=== PATIENT | male | born 1990 | race Caucasian/White ===

== ENCOUNTER 2025-01-14 14:24 | Emergency (ER) | payer MEDICAID, SELFPAY ==
--- OUTSIDE RECORDS SUMMARY | 2024-12-28 13:15 | XMS_ITS | Encounter Summary ---
Author Organization [place] [address] Care Team Providers Care Poultry Hanger Name Role Phone Darleen Trujillo MD Primary Care Provider [phone] Reason for Visit * Reason Comments Annual Exam Encounter Details Date Type Department Care Team (Late st Contact Info) Description 12/28/2024 1:15 PM EDT Office Visit [facility] [address] [place] [address] Darleen Trujillo MD [address] [place] [address] Annual physical exam (Primary Dx); Jojo disease (HCC); Memory disturbance Social History Tobacco Use Types Packs/Day Years Used Date Smoking Tobacco: Every Day Cigarettes 2 17.4 Started: 2007 Smokeless Tobacco: Never Tobacco Cessation:Ready [...] hopeless 0 12/28/2024 1:12 PM EDT Leda Mendze RMA PHQ-2 Total Score 0 12/28/2024 1:12 [...] A referral to a specialist who treats [place]'s disease will be pursued, preferably one [place] his location due to transportation challenges. If no response is received within a month, further action will be taken to ensure he gets the necessary care. Copies of his medical records will be made for further review. 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 Allysno Jalloh is a 34 y.o. male Chief [...] tension-type headache, not intractable Family history of [place]'s disease [place] disease (HCC) History reviewed. No pertinent past [...] of Present Illness The patient presents for [place]'s disease. He has been diagnosed with [place]'s disease, a condition that also claimed his [...] Results Diagnostic Testing - Genetic Test for [place] Disease: Heterozygous for 45 CAG The provider educated the patient (or legal maintenance representative) on the use of the ambient listening artificial intelligence tool, [employer]. 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
--- OUTSIDE RECORDS SUMMARY | 2025-01-04 14:00 | XMS_ITS | Encounter Summary ---
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) Galileo Ortega MD [address] [facility] [address] [place] [phone] Phone: tel: fax: Referral ID Status Reason Start Date Expiration Date Visits Requested Visits Authorized [id number] Authorized Specialty Services Required 01/04/2025 07/06/2026 1 1 Scheduling Instructions Please establish with patient for conformed Dayana's Disease with anticipated mood disorder included OCD, Anxiety, Depression, as well as anticipated impulsive behavior that are likely to develop over the disease course Reason for Visit * Consultation (Routine) - Closed Specialty Diagnoses / Procedures Referred By Loco clark Referred To Contact Neurology 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..] included. Subjective Junaid Jalloh presents to the [facility] Neurology Clinic as a new patient today with/for No chief complaint on file.. HPI Patient previously seen in [facility] for Haakon's Disease assessment in 2018, when he was [...] Reflexes: 2+ throughout Coordination: no ataxia with tqbevr-ri-fkhi and ctsl-qz-gtjm testing Proprioception: intact in upper and lower extremities bilaterally Cortical: no extinction of visual or tactile sensation with double simultaneous stimulation Gait/Station: alternates between narrow and wide based gait, chorea present with walking that is subtle, Discussion Summary: Junaid Jalloh is a 34 y.o. Male with significant PMHx of depression and know Father who was diagnosis'd with Haakon's disease between [id number] at age 47-48. He in 2022. His [...] his medical history. 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 #Haakon's Disease - he was educated and counseled about Dayana's disease, including its genetic basis, inheritance pattern, and progressive nature. Additional resources were provided, including the Haakon's Disease society of [place] (HD SA) website and support groups. - Genetic counseling was already discussed with hand filer balance wheel and they recommended testing 5 children after [...] was told about clinical trials available at [place] and [place] at this time. - Encouraged regular exercise [...] Castro MD Neurology Resident pgy 2 Pager: [phone] Smart Chat preferred I saw and evaluated [...] History Problem Relation Name Age of Onset Haakon's disease Father [3] Past Surgical History: Procedure [...] Clinic [facility] Clinic [address] [place] [address] Liset Castro MD [address] [phone] Scheduled Referrals Name Type Priority Associated Diagnoses Order Schedule Ambulatory referral to Psychiatry Outpatient Referral Routine Haakon disease (CMS/HCC) Expected: 01/04/2025 (Approximate), Expires: 07/08/2026 documented as of this encounter Visit Diagnoses Diagnosis 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
--- NOTE | 2025-01-14 14:28 | HMH.EDGENADL ---
Discharge Plan Disposition Patient Disposition: Home, Self-Care Condition: Good Referrals Follow up/Referrals: Provider,Referral, MD [Primary Care Provider, Medical] - See instructions Activity Restrictions/Add. Instructions Additional Instructions/Restrictions: You may wash with soap and water. Keep clean and dry. If you notice any redness drainage pain or swelling return to the ER. Your renate need to come out in 5 days. He may return to [facility] or the ER for staple removal. Clinical Impressions Clinical Impression: Laceration Instructions Patient Instructions: DI for Laceration Repair Print Language Print Language: Slovenian Discharge ED Provider: Robby Lamar Adult HPI <CORINNE Gutierrez - Last Filed: 01/14/25 16:16> General Chief complaint: Head Injury Stated complaint: AO 01/14 1400 Hit in head with crowbar Time Seen by Provider: 01/14/25 14:28 History of Present Illness HPI narrative: Patient presents for a scalp laceration. Patient was working utilizing a ladder and forgot that he had a crowbar on top of it. When he moved the ladder the crowbar fell striking him blade first in his posterior scalp. He did not lose consciousness. He denies any neck pain head pain changes or loss of vision. Related Data Allergies Allergy/AdvReac Type Severity Reaction Status Date / Time No Known Allergies Allergy Verified 01/14/25 15:04 PFS <CORINNE Gutierrez - Last Filed: 01/14/25 16:16> FOR[facility]LY [facility], [facility] Disclaimer: The information contained in this section may have been updated after the patient was seen, as this information can be updated by other users. Social History (Updated 01/14/25 @ 16:16 by CORINNE Gutierrez) Smoking Status: Current every day smoker alcohol intake: never current occupational status: employed Travel in the last 8 weeks?: None Have you lived/traveled outside US in past 30 days?: No Contact w/someone who lives/traveled outside US past 30 days?: No Exposure to someone with infectious disease in past 14 days?: No Do you have a fever (greater than 100.4 F or 38 C)?: No Have you tested positive for COVID-19?: No Exposed to someone with COVID-19 in past 14 days?: No Do you have a sore throat?: No Do you have a cough?: No Do you have any weakness?: No Do you have any diarrhea?: No Are you experiencing any unusual bleeding?: No Do you have any muscle aches/pain?: No Do you have any abdominal pain?: No Are you experiencing loss of taste or smell?: No <CORINNE Gutierrez - Last Filed: 01/14/25 16:16> ROS Obtained: Yes Systems reviewed as appropriate & no additional complaints except as documented Physical Exam <CORINNE Gutierrez - Last Filed: 01/14/25 16:16> General General appearance: alert and in no apparent distress Respiratory Respiratory exam: Present normal lung sounds bilaterally Cardiovascular Cardiovascular exam: Present regular rate Neurological Exam Neurological exam: Present alert and oriented X3 Medical Decision Making <CORINNE Gutierrez - Last Filed: 01/14/25 16:16> Medical Records Screening: Per USPSTF and CDC recommendations, given the prevalence of disease in our region, it is our hospital?s policy to screen for HIV and viral Hepatitis for all patients aged 18 and over and those with ongoing risk factors. Chance Inquiry Pt receiving controlled substance: No Vital Signs: 01/14/25 14:32 01/14/25 16:12 Temperature 98.2 F 98.4 F Temperature Source Oral Oral Pulse Rate 89 Pulse Rate [Left] 113 H Respiratory Rate 16 16 Blood Pressure 132/86 Blood Pressure [Right Arm] 138/96 H Blood Pressure Mean [Right Arm] 110 Blood Pressure Source Automatic Cuff Blood Pressure Source [Right Arm] Automatic Cuff Blood Pressure Position Sitting Blood Pressure Position [Right Arm] Sitting 02 Sat by Pulse Oximetry 98 Oxygen Delivery Method Room Air Room Air Orders (Tests/Meds): ED MEDICATIONS Discontinued Medications Generic Name Dose Route Start Last Admin Trade Name Freq PRN Reason Stop Dose Admin Cocaine HCl 1 ml 01/14/25 15:01 01/14/25 15:12 Cocaine 4% Topical Soln 4ml Bottle TP 01/14/25 15:02 1 ml ONCE ONE Administration Epinephrine HCl 1 mg 01/14/25 15:01 01/14/25 15:12 Epinephrine 1 Mg/Ml Ampul TP 01/14/25 15:02 1 mg ONCE ONE Administration Lidocaine HCl 1 ml 01/14/25 15:01 01/14/25 15:11 Lidocaine 2% Urojet 10ml TP 01/14/25 15:02 1 ml ONCE ONE Administration Lidocaine/Epinephrine 10 ml 01/14/25 14:59 Lidocaine 1% W/Epi 1:100,000 20ml Vial SQ 01/14/25 15:00 ONCE ONE Tetanus/Reduced Diphtheria/Acell Pertussis 0.5 ml 01/14/25 14:59 01/14/25 15:13 Tet/Diphth/Pert-Adult 0.5ml Syringe IM 01/14/25 15:00 0.5 ml .ONCE ONE Administration Medical Decision Narrative: In summary patient is a 34-year-old male who presents to the emergency department for evaluation of Laceration. Patient is hemodynamically upon arrival, afebrile. Physical exam is remarkable for a approximately 3 cm laceration at the crown of his head in the midline but posteriorly. No palpable bony deformities. Patient is awake alert and oriented person place circumstance. Katelin Coma Scale 15. Differential diagnosis includes simple laceration versus skull fracture versus closed head injury etc. However patient has no red flags to suggest anything other than a simple laceration thus alternative diagnosis is were not pursued. Initial workup was considered with labs and imaging however again patient has no red flags to suggest more significant injury so BANEGAS deferred. Initial interventions include Tdap and LAC solution. After 30 minutes for topical anesthetic take effect wound was explored and it is superficial does not extend to the calvarium. Wound was closed with 7 renate with good hemostasis and approximation. Patient given wound care and strict return precautions. <Robby Lamar MD - Last Filed: 01/14/25 23:02> Vital Signs: 01/14/25 14:32 01/14/25 16:12 Temperature 98.2 F 98.4 F Temperature Source Oral Oral Pulse Rate 89 Pulse Rate [Left] 113 H Respiratory Rate 16 16 Blood Pressure 132/86 Blood Pressure [Right Arm] 138/96 H Blood Pressure Mean [Right Arm] 110 Blood Pressure Source Automatic Cuff Blood Pressure Source [Right Arm] Automatic Cuff Blood Pressure Position Sitting Blood Pressure Position [Right Arm] Sitting 02 Sat by Pulse Oximetry 98 Oxygen Delivery Method Room Air Room Air Orders (Tests/Meds): ED MEDICATIONS Discontinued Medications Generic Name Dose Route Start Last Admin Trade Name Freq PRN Reason Stop Dose Admin Cocaine HCl 1 ml 01/14/25 15:01 01/14/25 15:12 Cocaine 4% Topical Soln 4ml Bottle TP 01/14/25 15:02 1 ml ONCE ONE Administration Epinephrine HCl 1 mg 01/14/25 15:01 01/14/25 15:12 Epinephrine 1 Mg/Ml Ampul TP 01/14/25 15:02 1 mg ONCE ONE Administration Lidocaine HCl 1 ml 01/14/25 15:01 01/14/25 15:11 Lidocaine 2% Urojet 10ml TP 01/14/25 15:02 1 ml ONCE ONE Administration Lidocaine/Epinephrine 10 ml 01/14/25 14:59 Lidocaine 1% W/Epi 1:100,000 20ml Vial SQ 01/14/25 15:00 ONCE ONE Tetanus/Reduced Diphtheria/Acell Pertussis 0.5 ml 01/14/25 14:59 01/14/25 15:13 Tet/Diphth/Pert-Adult 0.5ml Syringe IM 01/14/25 15:00 0.5 ml .ONCE ONE Administration Medical Decision Narrative: In summary patient is a 34-year-old male who presents to the emergency department for evaluation of Laceration. Patient is hemodynamically upon arrival, afebrile. Physical exam is remarkable for a approximately 3 cm laceration at the crown of his head in the midline but posteriorly. No palpable bony deformities. Patient is awake alert and oriented person place circumstance. Katelin Coma Scale 15. Differential diagnosis includes simple laceration versus skull fracture versus closed head injury etc. However patient has no red flags to suggest anything other than a simple laceration thus alternative diagnosis is were not pursued. Initial workup was considered with labs and imaging however again patient has no red flags to suggest more significant injury so BANEGAS deferred. Initial interventions include Tdap and LAC solution. After 30 minutes for topical anesthetic take effect wound was explored and it is superficial does not extend to the calvarium. Wound was closed with 7 renate with good hemostasis and approximation. Patient given wound care and strict return precautions. I was consulted by the CHARLENE, and we discussed the complexity of the problems being addressed.I approved the treatment and management plan for this patient?s care in the Emergency Department, thus performing a substantive portion of the medical decision making.Signed, Robby Lamar MD [facility] Procedures <CORINNE Gutierrez - Last Filed: 01/14/25 16:16> Laceration Laceration 1: Site: scalp Size (cm): 3.5 Description: linear Depth: simple, single layer Local Anesthetic: other anesthetic (LAC solution) Pre-repair: wound explored, irrigated extensively and deep structures intact Skin layer closed with: other (renate) Number of sutures: 7 Critical Care <CORINNE Gutierrez - Last Filed: 01/14/25 16:16> Critical Care Time Critical Care Time: No
[2025-01-14 14:32] VITALS: BP 138/96; PULSE 113; RESP 16; TEMP 36.8; O2SAT 98; BMI 23.8
--- OUTSIDE RECORDS SUMMARY | 2025-01-14 14:50 | XMS_ITS | Clinical Summary ---
Author Organization Healthcare Address [address] [place] [address] Care Team Providers Care Seamer Elastic Band Name Role Phone Pcp, No Primary Care Provider Unavailabl e Allergies No known active allergies Medications No known medications Active Problems Problem Noted Date Diagnosed Date Family history of Boundary's disease Missing teeth, acquired 10/24/2023 Chronic tension-type headache, not intractable 0 10/24/2023 Chronic back pain 10/24/2023 Wears glasses 10/24/2023 Astigmatism 10/24/2023 Encounters Date Type Department Care Team Description 01/04/2025 2:00 PM EDT Consult [facility] [address], [address] [place] [address] Liset Castro MD 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) 01/04/2025 Travel 12/31/2024 Telephone [facility] [address], [address] [place] [address] Neurology, Physician, 12/23/2024 Telephone [facility] [address], [address] [place] [address] Rocky Mckenna MD 12/20/2024 Telephone [facility] [address], [address] [place] [address] None, None 12/01/2024 Orders Only [facility] [address], [address] [place] [phone] Whitney Pereyra, HOUSEKEEPER HEAD Jojo disease ([facility]) (Primary Dx) 12/01/2024 Telephone [facility] [address], [address] [place] [address] Jasmine Quick, RITA 11/25/2024 Telephone [facility] [address], [facility] [place] [address] Whitney Pereyra, HOUSEKEEPER HEAD HCN Clinical Concern/Question 11/16/2024 Telephone [facility] [address], [facility] [place] [address] Whitney Pereyra, HOUSEKEEPER HEAD HCN - Patient Message 10/26/2024 10:00 AM EDT Office Visit [facility] [address], [address] [place] [phone] Jasmine Quick, GC 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4 C (99.3 F) 10/23/2023 12:55 PM EDT Respiratory Rate 18 10/23/2023 12:5 5 PM EDT Oxygen Saturation 99% 01/04/2025 1:23 PM EDT Inhaled Oxygen Concentration - - Weight 59.4 kg (130 lb 15.3 oz) 01/04/2025 1:23 PM EDT Height 162.9 cm (5' 4.13 ) 10/23/2023 1 2:55 PM EDT Body Mass Index 22.38 10/23/2023 12:55 PM EDT Plan of Treatment Upcoming Encounters Date Type Department Care Team (Late st Contact Info) Description 07/05/2025 2:00 PM EST Office Visit [place] [facility] [address], [address] [place] [address] Liset Castro MD [address] [place] [address] Health Maintenance Due Date Last Done Comments [facility]-HIV Screening 1990 [facility]-Hepatitis C Screening 1990 [facility]-Infant/Child/Adol SDOH Screenings 1990 [facility]-DTaP,Tdap,and Td Vaccines (2 - Tdap) 01/29/2003 01/28/2003 [facility]-Varicella Vaccines (1 of 2 - 13+ 2-dose series) 2003 HPV Vaccines (1 - Male 3-dose series) 2005 [facility]- SDOH Screenings 2008 [facility]-Adult SDOH Screenings 2008 [facility]-Pneumococcal Vaccine: Pediatrics (0 to 5 Years) and At-Risk Patients (6 to 49 Years) (1 of 2 - PCV) 2009 [facility]-IKNAV-09 Vaccine (1 - season) 2024 [facility]-Depression Screening 10/22/2024 10/23/2023 [facility]-Influenza Vaccine (Season Ended) 2025 [facility]-Zoster Vaccines (1 of 2) 2040 [facility]-Hepatitis B Vaccines Completed 004, 02/28/2003, 01/28/2003 [facility]-Hepatitis A Vaccines Aged Out 07/17/2021 No longer eligible based on patient's age to complete this topic [facility]-HIB Vaccines Aged Out No longer e ligible based on patient's age to complete this topic [facility]-IPV Vaccines Aged Out No longer e ligible based on patient's age to complete this topic [facility]-Rotavirus Vaccines Aged Out No lo nger eligible based on patient's age to complete this topic Insurance [employer] Care Teams Seamer Elastic Band Relationship Specialty Start Date End [place] [address] PCP - General Family Medicine 10/26/24
--- OUTSIDE RECORDS SUMMARY | 2025-01-14 14:50 | XMS_ITS | Encounter Summary ---
Author Organization Healthcare Address [address] [place] [address] Care Team Providers Care Manufacturing Plant Controller Name Role Phone Pcp, No Primary Care Provider Unavailabl e Encounter Details Date Type Department Care Team (Late st Contact Info) Description 12/20/2024 Telephone [facility] [address], [address] [place] [address] None, None [address], [place] [id number] Social History Tobacco Use Types Packs/Day Years [...] on file documented as of this encounter Miscellaneous Notes * Telephone Encounter - Viki Lovell RN - 01/10/2025 3:48 PM EDT Referral was faxed and patient was seen by [facility] Neurology on 01/21/2025 at 1400. * Telephone Encounter - Nito Orourke - 12/20/2024 9:24 AM EDT Clinical Concern/Question Reason for Call: pt's mother calling because prior referral was sent to clinic that does not acceptpt's insurance, please send new referral to Dr Rocky Mckenna, fax #[phone] Best contact number: [phone] (home) Optimal time of day to reach caller: ANYTIME Additional comments/information from caller: None Note: Please do not reply to this message. Follow-up communication and further actions as a result of this message need to be communicated with the patient directly, if the patient is not active onMyChart. If the patient is active on MyChart, they will receive notification of the communication/outcome via DataContact. documented in this encounter Plan of Treatment Upcoming Encounters Date Type Department Care Team (Late st Contact Info) Description 07/05/2025 2:00 PM EST Office Visit [facility] [address], [address] [place] [address] Liset Castro MD [address] [place] [address] documented as of this encounter Visit Diagnoses Not on filedocumented in this encounter Additional Health Concerns Assessment Noted Time A Body Mass Index follow-up plan has been documented for the patient 11/02/2024 1:55 PM EDT documented as of this encounter Care Teams Manufacturing Plant Controller Relationship Specialty Start Date End Date Pcp, Dhara [address] [place] [address] PCP - General Family Medicine 10/26/24 documented as of this encounter
--- OUTSIDE RECORDS SUMMARY | 2025-01-14 14:50 | XMS_ITS | Encounter Summary ---
Author Organization Healthcare Address [address] [place] [address] Care Team Providers Care Caterer'S Aide Name Role Phone Pcp, No Primary Care Provider Unavailabl e Reason for Visit * Reason Onset Date Comments HCN Clinical Concern/Question 11/25/2024 Encounter Details Date Type Department Care Team (Late st Contact Info) Description 11/25/2024 Telephone [facility] [address], [address] [place] [address] Whitney Pereyra APRN [address] [place] [address] HCN Clinical Concern/Question Social History Tobacco Use Types Packs/Day Years [...] encounter Miscellaneous Notes * Telephone Encounter - Whitney Pereyra APRN - 12/01/2024 12:41 PM EDT Referral order placed. Please fax clinical documents and referral per patient/clinic's request. Thank you. * Telephone Encounter - Viki Lovell RN - 12/01/2024 10:36 AM EDT Forwarding * Telephone Encounter - Maribell Menendez - 11/25/2024 10:34 AM EDT Clinical Concern/Question Reason for Call: Mom of patient who is helping him states that Dr. Leda Villeda's office is requesting a referral to their Neurology clinic in addition to the labs that were previously sent so they can schedule the patient. If you could please fax that to [phone]. If you could please let Mom know when that has been done. Thank you. Best contact number: Other: [phone] Optimal time of day to reach caller: ANYTIME Additional comments/information from caller: None Note: Please do not reply to this message. Follow-up communication and further actions as a result of this message need to be communicated with the patient directly, if the patient is not active onMyChart. If the patient is active on MyChart, they will receive notification of the communication/outcome via [email or web address]. documented in this encounter Plan of Treatment Upcoming Encounters Date Type Department Care Team (Late st Contact Info) Description 07/05/2025 2:00 PM EST Office Visit [place] [facility] [address], [address] [place] [address] Liset Castro MD [address] [place] [address] documented as of this encounter Visit Diagnoses Not on filedocumented in this encounter Additional Health Concerns Assessment Noted Time A Body Mass Index follow-up plan has been documented for the patient 11/02/2024 1:55 PM EDT documented as of this encounter Care Teams Caterer'S Aide Relationship Specialty Start Date End Date Pcp, [place] [address] PCP - General Family Medicine 10/26/24 documented as of this encounter
--- OUTSIDE RECORDS SUMMARY | 2025-01-14 14:50 | XMS_ITS | Encounter Summary ---
Author Organization Healthcare Address [address] [place] [address] Care Team Providers Care Aesthetics Instructor Name Role Phone Pcp, No Primary Care Provider Unavailabl e Encounter Details Date Type Department Care Team (Late st Contact Info) Description 12/31/2024 Telephone [facility] [address] [place] [address] Neurology, Physician, [address] [place] [address] Social History Tobacco Use Types Packs/Day Years [...] on file documented as of this encounter Plan of Treatment Upcoming Encounters Date Type Department Care Team (Late st Contact Info) Description 07/05/2025 2:00 PM EST Office Visit [facility] [address] [place] [address] Liset Castro MD [address] [place] [address] documented as of this encounter Visit Diagnoses Not on filedocumented in this encounter Additional Health Concerns Assessment Noted Time A Body Mass Index follow-up plan has been documented for the patient 11/02/2024 1:55 PM EDT documented as of this encounter Care Teams Aesthetics Instructor Relationship Specialty Start Date End Date Pcp, [place] [address] PCP - General Family Medicine 10/26/24 documented as of this encounter
--- OUTSIDE RECORDS SUMMARY | 2025-01-14 14:50 | XMS_ITS | Encounter Summary ---
Author Organization Healthcare Address [address] [place] [address] Care Team Providers Care Conveyor Tender Concrete Mixing Plant Name Role Phone Pcp, No Primary Care Provider Unavailabl e Encounter Details Date Type Department Care Team (Late st Contact Info) Description 12/01/2024 Telephone [facility] [address], [address] [place] [address] Jasmine Quick, [address] [place] [address] Social History Tobacco Use Types Packs/Day Years [...] Telephone Encounter - Viki Lovell RN - 12/10/2024 3:58 PM EDT I faxed referral on 12/08/2024 at 0938 and spoke with retail center receptionist Alexx lindsay who confirmed neurology referral was received and their sales development coordinator will reach out to schedule soon. * Telephone Encounter - Viki Lovell RN - 12/10/2024 3:57 PM EDT I faxed referral on 12/08/2024 at 0938 and spoke with retail center receptionist Alexx lindsay who confirmed neurology referral was received and their sales development coordinator will reach out to schedule soon. * Telephone Encounter - Jasmine Quick GC - 12/01/2024 10:32 AM EDT Family was following up on referral to Neurologist: Leda Villeda at [facility], fax [phone] Junaid Jalloh [address] [place] [address] - mail results to family * Telephone Encounter - Nito Orourke - 12/01/2024 10:25 AM EDT Clinical Concern/Question Reason for Call: pt's calling because pt's records need to be sent to Neuro for treatment plan, please callback to discuss tino Best contact number: [phone] (home) Optimal time of day to reach caller: ANYTIME Additional comments/information from caller: None Note: Please do not reply to this message. Follow-up communication and further actions as a result of this message need to be communicated with the patient directly, if the patient is not active onMyChart. If the patient is active on MyChart, they will receive notification of the communication/outcome via MyChart. documented in this encounter Plan of Treatment Upcoming Encounters Date Type Department Care Team (Late st Contact Info) Description 07/05/2025 2:00 PM EST Office Visit [facility] [address] [place] [address] Liset Castro MD [address] [place] [address] documented as of this encounter Visit Diagnoses Not on filedocumented in this encounter Additional Health Concerns Assessment Noted Time A Body Mass Index follow-up plan has been documented for the patient 11/02/2024 1:55 PM EDT documented as of this encounter Care Teams Conveyor Tender Concrete Mixing Plant Relationship Specialty Start Date End Date Pcp, No [address] [place] [address] PCP - General Family Medicine 10/26/24 documented as of this encounter
--- OUTSIDE RECORDS SUMMARY | 2025-01-14 14:50 | XMS_ITS | Clinical Summary ---
Author Organization 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 Astigmatism 10/24/2023 Chronic back pain 10/24/2023 Chronic tension-type headache, not intractable 0 10/24/2023 Family history of Carbon's disease Encounters Date Type Department Care Team Description 12/28/2024 1:15 PM EDT Office Visit [facility] [address] [place] [address] Darleen Trujillo MD Annual physical exam (Primary Dx); Carbon disease (HCC); Memory disturbance from Last 3 Months Immunizations Immunization Administration Dates Next Due Hepatitis A, Adult 07/17/2021 Hepatitis B, Ped/Adol 09/09/2003,02/28/2003,01/03 MMR 03/19/1996 Td (Adult), Absorbed 01/28/2003 Family History Medical History Relation Name Comments huntingtons disease Father huntingtons disease Relation Name Status Comments Father huntingtons disease Social History Tobacco Use Types Packs/Day Years [...] on file Sexual Orientation Not on file Obstetrics History Last Filed Vital Signs Vital Sign Reading [...] Mass Index 22.85 12/28/2024 1:12 PM EDT Plan of Treatment Health Maintenance Due Date Last Done Comments DTaP/TDaP/Td (2 - Tdap) 01/29/2003 01/28/2003 Pneumococcal Vaccine 0-49 (1 of 2 - PCV) 2009 COVID-19 Vaccine (2023-2 5 season) 2024 Influenza Vaccine (Season Ended) 2025 Annual Wellness Exam 12/28/2025 12/28/2024 Hepatitis B Vaccine Completed 09/09/2003, 02/28/2003, 01/28/2003 Meningococcal B Vaccine Aged Out No l onger eligible based on patient's age to complete this topic Goals Goal Patient Goal Type Associated Problems Recent Progress Patient-Stated? Author Maintain a healthy diet, exercise regularly and maintain an ideal body weight General Zara Angela CCMA Stay Tobacco Free Lifestyle Zara Angela CCMA Procedures Procedure Name Priority Date/Time Associated Diagnosis Comments GENETIC SCANNING 12/29/2024 6:25 PM EDT from Last 3 Months Results * GENETIC SCANNING (12/29/2024 6:25 PM EDT) 12/29/2024 6:25 PM EDT us Unknown Provider HEMATOLOGY ORDERABLES Final Res ult from Last [address] [place] [address] [id number] MDR Care Teams Seasoning Sprayer Relationship Specialty Start Date End Date Darleen Trujillo MD [address] [place] [address] PCP - General Family Medicine 04/16/23
--- OUTSIDE RECORDS SUMMARY | 2025-01-14 14:50 | XMS_ITS | Encounter Summary ---
Author Organization Healthcare Address [address] [place] [address] Care Team Providers Care Tool Designer Apprentice Name Role Phone Leda Villeda Patrick DO Primary Care Provider Pcp, No Primary Care Provider Unavailabl e Encounter Details Date Type Department Care Team (Late st Contact Info) Description 10/18/2024 Results Follow-Up [facility] Pediatric Specialty [address], [address] [place] [address] Whitney Pereyra P, FLYING SHEAR OPERATOR [address] [place] [address] Social History Tobacco Use Types [...] Description 07/05/2025 2:00 PM EST Office Visit [facility] [address], [address] [place] [address] Liset Castro MD [address] [place] [address] documented as of this encounter Visit Diagnoses Not on filedocumented in this encounter Additional Health Concerns Assessment Noted Time A Body Mass Index follow-up plan has been documented for the patient 10/24/2023 6:00 PM EDT documented as of this encounter Care Teams Tool Designer Apprentice Relationship Specialty Start Date End Date Leda Villeda DO [facility] [address] [place] [address] PCP - General 10/23/23 10/25/24 Pcp, [place] [address] PCP - General Family Medicine 10/26/24 documented as of this encounter
--- OUTSIDE RECORDS SUMMARY | 2025-01-14 14:50 | XMS_ITS | Encounter Summary ---
Author Organization Healthcare Address [address] [place] [address] Care Team Providers Care Meter Maintenance Person Name Role Phone Pcp, No Primary Care Provider Unavailabl e Reason for Visit * Reason Onset Date Comments HCN - Patient Message 11/16/2024 Encounter Details Date Type Department Care Team (Late st Contact Info) Description 11/16/2024 Telephone [facility] [address], [address] [place] [address] Whitney Pereyra, PHYSICS FACULTY MEMBER [address] [place] [address] HCN - Patient Message Social History Tobacco Use Types Packs/Day Years [...] encounter Miscellaneous Notes * Telephone Encounter - Zahira Laurent RN - 11/17/2024 9:29 AM EDT Faxed HD Testing Results to Dr. Leda Villeda at the fax number given on 11/17/24, confirmed fax went through. * Telephone Encounter - Santiago Perez - 11/16/2024 3:08 PM EDT Clinical Concern/Question Reason for Call: please send lab results to Leda Villeda fax number [phone] Best contact number: [phone] Optimal time of day to reach caller: ANYTIME Additional comments/information from caller: Not Applicable Note: Please do not reply to this message. Follow-up communication and further actions as a result of this message need to be communicated with the patient directly, if the patient is not active onMyChart. If the patient is active on MyChart, they will receive notification of the communication/outcome via [employer]. documented in this encounter Plan of Treatment Upcoming Encounters Date Type Department Care Team (Late st Contact Info) Description 07/05/2025 2:00 PM EST Office Visit [place] [facility] [address], [address]st [place] [address] Liset Castro MD [address] [place] [address] documented as of this encounter Visit Diagnoses Not on filedocumented in this encounter Additional Health Concerns Assessment Noted Time A Body Mass Index follow-up plan has been documented for the patient 11/02/2024 1:55 PM EDT documented as of this encounter Care Teams Meter Maintenance Person Relationship Specialty Start Date End Date Pcp, Dhara [address] [place] [address] PCP - General Family Medicine 10/26/24 documented as of this encounter
--- OUTSIDE RECORDS SUMMARY | 2025-01-14 14:50 | XMS_ITS | Encounter Summary ---
Author Organization Healthcare Address [address] [place] [address] Care Team Providers Care Gym Manager Name Role Phone Pcp, No Primary Care Provider Unavailabl e Encounter Details Date Type Department Care Team (Late st Contact Info) Description 12/23/2024 Telephone [facility] [address], [address] [place] [address] Rocky Mckenna MD [address] [place] [address] Social History Tobacco Use Types [...] encounter Miscellaneous Notes * Telephone Encounter - Troi Evans - 12/23/2024 12:41 PM EDT Patient Phone Message Reason for Call: Patient is requesting a call back to his mother for scheduling with Dr. Mckenna. Confirmed this is correct. No open slots available. Please work in, Best contact number and optimal time of day to reach caller: [phone] best number Note: Please do not reply to this [...] Description 07/05/2025 2:00 PM EST Office Visit [facility] [address], [address]st [place] [address] Liset Castro MD [address] [place], [place] [id number] documented as of this encounter Visit Diagnoses Not on filedocumented in this encounter Additional Health Concerns Assessment Noted Time A Body Mass Index follow-up plan has been documented for the patient 11/02/2024 1:55 PM EDT documented as of this encounter Care Teams Gym Manager Relationship Specialty Start Date End Date Pcp, No [address] [place] [address] PCP - General Family Medicine 10/26/24 documented as of this encounter
--- OUTSIDE RECORDS SUMMARY | 2025-01-14 14:50 | XMS_ITS | Encounter Summary ---
Author Organization Healthcare Address [address] [place] [address] Care Team Providers Care Manufacturing Engineer Assembly Name Role Phone Pcp, No Primary Care Provider Unavailabl e Reason for Referral * Consultation (Routine) - Closed Specialty Diagnoses / Procedures Referred By Contjake t Referred To Contact Neurology Diagnoses Jojo disease (CMS/HCC) Whitney Pereyra APRN [address] [place] [address] Phone: tel: fax: Referral ID Status Reason Start Date Expiration Date V isits Requested Visits Authorized [id number] Closed Specialty Services Required 12/01/2024 06/02/2026 1 1 Scheduling Instructions Please send referral to Leda Villeda at [facility] per family/patient request. Encounter Details Date Type Department Care Team (Late st Contact Info) Description 12/01/2024 Orders Only [facility] Pediatric Specialty [address], [address] [place] [address] Whitney Pereyra APRN [address] [place] [address] Red [place] disease (CMS/HCC) (Primary Dx) Social History Tobacco [...] as of this encounter Miscellaneous Notes * Progress Notes - Whitney Pereyra APRN - 12/01/2024 12:38 PM EDT Encounter to enter neurology referral. 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
--- OUTSIDE RECORDS SUMMARY | 2025-01-14 14:50 | XMS_ITS | Encounter Summary ---
Author Organization Healthcare Address [address] [place] [address] Care Team Providers Care Expanded Function Dental Assistant Name Role Phone Pcp, No Primary Care Provider Unavailabl e Encounter Details Date Type Department Care Team (Latest Contact Info) Description 01/04/2025 Travel Social History Tobacco Use Types Packs/Day Years [...] Visit [place] [facility] [address], [address]st [place] [address] Liset Castro MD [address] [place], [place] [id number] documented as of this encounter Visit Diagnoses Not on filedocumented in this encounter Additional Health Concerns Assessment Noted Time A fall risk assessment has been complete d for the patient 01/04/2025 1:24 PM EDT A Body Mass Index follow-up plan has been documented for the patient 01/04/2025 2:44 PM EDT documented as of this encounter Care Teams Expanded Function Dental Assistant Relationship Specialty Start Date End Date Pcp, Dhara [facility] [place] [address] PCP - General Family Medicine 10/26/24 documented as of this encounter
[2025-01-14] MEDS: LIDOCAINE 2% UROJET 10ML TP (15:11)
[2025-01-14] MEDS: COCAINE 4% TOPICAL SOLN 4ML BOTTLE 1 ML TP (15:12)
[2025-01-14] MEDS: EPINEPHrine 1 MG/ML AMPUL TP (15:12)
[2025-01-14] MEDS: TET/DIPHTH/PERT-ADULT 0.5ML SYRINGE 0.5 ML IM (15:13)
[2025-01-14 16:12] VITALS: BP 132/86; PULSE 89; RESP 16; TEMP 36.9; O2SAT 100
== END 2025-01-14 16:13 | disposition home or self-care (01) ==
PROVIDERS: Emergency Provider Emergency Medicine
DX: S09.90XA Unspecified injury of head, initial encounter (principal); W27.8XXA Contact with other nonpowered hand tool, initial encounter; F17.210 Nicotine dependence, cigarettes, uncomplicated
CPT/HCPCS: 12002; 90471; 90715; 99283; J0171; J2004

== ENCOUNTER 2025-01-19 10:30 | Emergency (ER) | payer MEDICAID, SELFPAY ==
--- OUTSIDE RECORDS SUMMARY | 2024-12-28 13:15 | XMS_ITS | Encounter Summary ---
Author Organization [place] [address] Care Team Providers Care Casino Dealer Name Role Phone Darleen Trujillo MD Primary Care Provider [phone] Reason for Visit * Reason Comments Annual Exam Encounter Details Date Type Department Care Team (Late st Contact Info) Description 12/28/2024 1:15 PM EDT Office Visit [facility] [address] [place] [address] Darleen Trujillo MD [address] [place] [address] Annual physical exam (Primary Dx); Jojo disease [...] A referral to a specialist who treats [place]'s disease will be pursued, preferably one [place] his location due to transportation challenges. If no response is received within a month, further action will be taken to ensure he gets the necessary care. Copies of his medical records will be made for further review. Dx/Orders: Diagnoses and all orders for this visit: Annual physical exam [place] disease (HCC) (Chronic) Comments: father had it [...] tension-type headache, not intractable Family history of [place]'s disease [place] disease (HCC) History reviewed. No pertinent past [...] of Present Illness The patient presents for [place]'s disease. He has been diagnosed with [place]'s disease, a condition that also claimed his [...] Results Diagnostic Testing - Genetic Test for [place]'s Disease: Heterozygous for 45 CAG The provider educated the patient (or legal human resources hr representative) on the use of the ambient listening artificial intelligence tool, [employer]. They were informed that this AI tool [...] of such information, the patient (or legal human resources hr representative), and each individual in attendance with [...] Angela CCMA Stay Tobacco Free Lifestyle Zara Angela CCMA documented as of this encounter Procedures Procedure Name Priority Date/Time Associated Diagnosis Comments GENETIC SCANNING 12/29/2024 6:25 PM EDT documented in this encounter Results * GENETIC SCANNING (12/29/2024 6:25 PM EDT) 12/29/2024 6:2 5 PM EDT us Unknown Provider HEMATOLOGY ORDERABLES Final Res ult documented in this encounter Visit Diagnoses Diagnosis Annual physical exam- Primary Routine general medical examination at a health care facility [place]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
--- OUTSIDE RECORDS SUMMARY | 2025-01-04 14:00 | XMS_ITS | Encounter Summary ---
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) Galileo Ortega MD [address] [facility] [address] [place] [phone] Phone: tel: fax: Referral ID Status Reason Start Date Expiration Date Visits Requested Visits Authorized [id number] Authorized Specialty Services Required 01/04/2025 07/06/2026 1 1 Scheduling Instructions Please establish with patient for conformed Dayana's Disease with anticipated mood disorder included OCD, Anxiety, Depression, as well as anticipated impulsive behavior that are likely to develop over the disease course Reason for Visit * Consultation (Routine) - Closed Specialty Diagnoses / Procedures Referred By Loco clark Referred To Contact Neurology 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 Subjective Junaid Jalloh presents to the [facility] Neurology Clinic as a new patient today with/for No chief complaint on file.. HPI Patient previously seen in [facility] for Dorchester's Disease assessment in 2018, when he was 27 years old. Note from original encounter: The patient reported that he has a father with Dayana's disease and that his father is seen here at the [facility] clinic. The father was diagnosed in January [...] Reflexes: 2+ throughout Coordination: no ataxia with wkegeu-zi-jffi and amql-na-xsgw testing Proprioception: intact in upper and lower extremities bilaterally Cortical: no extinction of visual or tactile sensation with double simultaneous stimulation Gait/Station: alternates between narrow and wide based gait, chorea present with walking that is subtle, Discussion Summary: Junaid Jalloh is a 34 y.o. Male with significant PMHx of depression and know Father who was diagnosis'd with Dorchester's disease between [id number] at age 47-48. He in 2022. His [...] his medical history. 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 #Dorchester's Disease - he was educated and counseled about Dayana's disease, including its genetic basis, inheritance pattern, and progressive nature. Additional resources were provided, including the Dorchester's Disease society of [place] (HD SA) website and support groups. - Genetic counseling was already discussed with brake repairer railroad and they recommended testing 5 children after [...] was told about clinical trials available at [place] and [place] at this time. - Encouraged regular exercise [...] Castro MD Neurology Resident pgy 2 Pager: [phone] Smart Chat preferred I saw and evaluated [...] History Problem Relation Name Age of Onset Dorchester's disease Father [3] Past Surgical History: Procedure [...] 2:00 PM EST Office Visit [place] Clinic [facility] Clinic [address] [place] [address] Liset Castro MD [address] [phone] Scheduled Referrals Name Type Priority Associated Diagnoses Order Schedule Ambulatory referral to Psychiatry Outpatient Referral Routine Dorchester disease (CMS/HCC) Expected: 01/04/2025 (Approximate), Expires: 07/08/2026 documented as of this encounter Visit Diagnoses Diagnosis 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
[2025-01-19 10:38] VITALS: BP 128/80; PULSE 92; RESP 14; TEMP 36.7; O2SAT 99
--- OUTSIDE RECORDS SUMMARY | 2025-01-19 10:43 | XMS_ITS | Encounter Summary ---
Author Organization Healthcare Address [address] [place] [address] Care Team Providers Care Animal Assistant Name Role Phone Pcp, No Primary Care Provider Unavailabl e Encounter Details Date Type Department Care Team (Late st Contact Info) Description 12/31/2024 Telephone [facility] [address] [place] [address] Neurology, Physician, [address] [place] [address] Social History Tobacco Use Types Packs/Day Years [...] Description 07/05/2025 2:00 PM EST Office Visit [facility] [address], [address] [place] [address] Liset Castro MD [address] [place] [address] documented as of this encounter Visit Diagnoses Not on filedocumented in this encounter Additional Health Concerns Assessment Noted Time A Body Mass Index follow-up plan has been documented for the patient 11/02/2024 1:55 PM EDT documented as of this encounter Care Teams Animal Assistant Relationship Specialty Start Date End Date Pcp, [place] [address] PCP - General Family Medicine 10/26/24 documented as of this encounter
--- OUTSIDE RECORDS SUMMARY | 2025-01-19 10:43 | XMS_ITS | Clinical Summary ---
Author Organization 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 Astigmatism 10/24/2023 Chronic back pain 10/24/2023 Chronic tension-type headache, not intractable 0 10/24/2023 Family history of Dekalb's disease Encounters Date Type Department Care Team Description 12/28/2024 1:15 PM EDT Office Visit [facility] [address] [place] [address] Darleen Trujillo MD Annual physical exam (Primary Dx); Dekalb disease (HCC); Memory disturbance from Last 3 [...] Res ult from Last [address] [place] [address] [place] [id number] MDR Care Teams Chiropractor Assistant Relationship Specialty Start Date End Date Darleen Trujillo MD [address] [place] [address] PCP - General Family Medicine 04/16/23
--- OUTSIDE RECORDS SUMMARY | 2025-01-19 10:43 | XMS_ITS | Encounter Summary ---
Author Organization Healthcare Address [address] [place] [address] Care Team Providers Care Waterproof Coating Machine Tender Name Role Phone Pcp, No Primary Care Provider Unavailabl e Encounter Details Date Type Department Care Team (Late st Contact Info) Description 12/20/2024 Telephone [facility] [address], [address] [place] [address] None, None [address], [place] [id number] Social History Tobacco Use Types Packs/Day Years [...] was faxed and patient was seen by [facility] Neurology on 01/21/2025 at 1400. * Telephone Encounter - Nito Orourke - 12/20/2024 9:24 AM EDT Clinical Concern/Question Reason for Call: pt's mother calling because prior referral was sent to clinic that does not acceptpt's insurance, please send new referral to Dr Rocky Mckenna, fax #[phone] Best contact number: [phone] (home) Optimal time of day to reach caller: ANYTIME Additional comments/information from caller: None Note: Please do not reply to this message. Follow-up communication and further actions as a result of this message need to be communicated with the patient directly, if the patient is not active onMyChart. If the patient is active on MyChart, they will receive notification of the communication/outcome via [employer]. documented in this encounter Plan of Treatment Upcoming Encounters Date Type Department Care Team (Late st Contact Info) Description 07/05/2025 2:00 PM EST Office Visit [place] [facility] [address], 1st [place] [address] Liset Castro MD [address] [place] [address] documented as of this encounter Visit Diagnoses Not on filedocumented in this encounter Additional Health Concerns Assessment Noted Time A Body Mass Index follow-up plan has been documented for the patient 11/02/2024 1:55 PM EDT documented as of this encounter Care Teams Waterproof Coating Machine Tender Relationship Specialty Start Date End Date Pcp, Dhara [address] [place] [address] PCP - General Family Medicine 10/26/24 documented as of this encounter
--- OUTSIDE RECORDS SUMMARY | 2025-01-19 10:43 | XMS_ITS | Encounter Summary ---
Author Organization Healthcare Address [address] [place] [address] Care Team Providers Care Upper Lining Cementer Name Role Phone Pcp, No Primary Care Provider Unavailabl e Reason for Referral * Consultation (Routine) - Closed Specialty Diagnoses / Procedures Referred By Contjake t Referred To Contact Neurology Diagnoses Jojo disease (CMS/HCC) Whitney Pereyra APRN [address] [place] [address] Phone: tel: fax: Referral ID Status Reason Start Date Expiration Date V isits Requested Visits Authorized [id number] Closed Specialty Services Required 12/01/2024 06/02/2026 1 1 Scheduling Instructions Please send referral to Leda Villeda at [facility] per family/patient request. Encounter Details Date Type Department Care Team (Late st Contact Info) Description 12/01/2024 Orders Only [facility] Pediatric Specialty [address], [address] [place] [address] Whitney Pereyra APRN [address] [place] [address] Charenton disease (CMS/HCC) (Primary Dx) Social History Tobacco [...] Description 07/05/2025 2:00 PM EST Office Visit [place] [facility] [address], [address] Floor [place] [phone] Liset Castro MD [address] [place] [address] Scheduled Referrals Name Type Priority Associated Diagnoses Order Schedule Ambulatory referral to Neurology Outpatient Referral Routine Charenton disease (CMS/HCC) 1 Occurrences starting 12/01/2024 until 06/02/2026 documented as of this encounter Visit Diagnoses Diagnosis Charenton disease (CMS/HCC)- Primary Charenton's chorea documented in this encounter Additional Health Concerns Assessment Noted Time A Body Mass Index follow-up plan has been documented for the patient 11/02/2024 1:55 PM EDT documented as of this encounter Care Teams Upper Lining Cementer Relationship Specialty Start Date End Date Pcp, No [address] [place] [address] PCP - General Family Medicine 10/26/24 documented as of this encounter
--- OUTSIDE RECORDS SUMMARY | 2025-01-19 10:43 | XMS_ITS | Clinical Summary ---
Author Organization Healthcare Address [address] [place] [address] Care Team Providers Care Resident Care Manager Rn Name Role Phone Pcp, No Primary Care Provider Unavailabl e Allergies No known active allergies Medications No known medications Active Problems Problem Noted Date Diagnosed Date Family history of Sumner's disease Missing teeth, acquired 10/24/2023 Chronic tension-type headache, not intractable 0 10/24/2023 Chronic back pain 10/24/2023 Wears glasses 10/24/2023 Astigmatism 10/24/2023 Encounters Date Type Department Care Team Description 01/04/2025 2:00 PM EDT Consult [facility] [address], 1st [place] [address] Liset Castro MD Sumner disease ([facility]) (Primary Dx) 01/04/2025 Travel 12/31/2024 Telephone [facility] [address], [address] [place] [address] Neurology, Physician, 12/23/2024 Telephone [facility] [address], [address] [place] [address] Rocky Mckenna MD 12/20/2024 Telephone [facility] Pediatric Specialty [address], [address] [place] [address] None, None 12/01/2024 Orders Only [facility] Pediatric Specialty [address], [address] [place] [address] Whitney Pereyra, PAINTING AND COATING WORKER Jojo disease ([facility]/HCC) (Primary Dx) 12/01/2024 Telephone [facility] Pediatric Specialty [address], [address] [place] [address] Jasmine Quick GC 11/25/2024 Telephone [facility] Pediatric Specialty [address], [facility] [place] [address] Whitney Pereyra, PAINTING AND COATING WORKER HCN Clinical Concern/Question 11/16/2024 Telephone [facility] Pediatric Specialty [address], [address] [place] [address] [place] [address] Whitney Pereyra, PAINTING AND COATING WORKER HCN - Patient Message 10/26/2024 10:00 AM EDT Office Visit [facility] Pediatric Specialty [address], [address] [place] [phone] Jasmine Quick, RITA Sumner disease ([facility]/HCC) (Primary Dx) 10/26/2024 Travel from Last 3 Months Family History Medical History Relation Name Comments Sumner's disease Father Relation Name Status Comments Father [...] Visit [place] [facility] [address], [address] [place] [address] Liset Castro MD [address] [place] [address] Health Maintenance Due Date Last Done Comments [facility]-HIV Screening 1990 [facility]-Hepatitis C Screening 1990 [facility]-/Child/Adol SDOH Screenings 1990 [facility]-DTaP,Tdap,and Td Vaccines (2 - Tdap) 01/29/2003 01/28/2003 [facility]-Varicella Vaccines (1 of 2 - 13+ 2-dose series) 2003 HPV Vaccines (1 - Male 3-dose series) 2005 [facility]- SDOH Screenings 2008 [facility]-Adult SDOH Screenings 2008 [facility]-Pneumococcal Vaccine: Pediatrics (0 to 5 Years) and At-Risk Patients (6 to 49 Years) (1 of 2 - PCV) 2009 [facility]-QYGLO-03 Vaccine ( - season) 2024 [facility]-Depression Screening 10/22/2024 10/23/2023 [...] this topic Insurance [employer] Care Teams Resident Care Manager Rn Relationship Specialty Start Date End Date Pcp, [place] [address] PCP - General Family Medicine 10/26/24
--- OUTSIDE RECORDS SUMMARY | 2025-01-19 10:43 | XMS_ITS | Encounter Summary ---
Author Organization Healthcare Address [address] [place] [address] Care Team Providers Care Paid Search Manager Name Role Phone Leda Villeda Patrick DO Primary Care Provider [phone] Pcp, No Primary Care Provider Unavailabl e Encounter Details Date Type Department Care Team (Late st Contact Info) Description 10/18/2024 Results Follow-Up [facility] [place] Pediatric Specialty [address] [place] [address] Whitney Pereyra P, GOLF PROFESSIONAL [address] [place] [address] Social History Tobacco Use Types [...] Description 07/05/2025 2:00 PM EST Office Visit [place] [facility] [address], [address] [place] [address] Liset Castro MD [address] [place] [address] documented as of this encounter Visit Diagnoses Not on filedocumented in this encounter Additional Health Concerns Assessment Noted Time A Body Mass Index follow-up plan has been documented for the patient 10/24/2023 6:00 PM EDT documented as of this encounter Care Teams Paid Search Manager Relationship Specialty Start Date End Date Leda Villeda DO [address] [place] [address] PCP - General 10/23/23 10/25/24 Pcp, [place] [address] PCP - General Family Medicine 10/26/24 documented as of this encounter
--- OUTSIDE RECORDS SUMMARY | 2025-01-19 10:43 | XMS_ITS | Encounter Summary ---
Author Organization Healthcare Address [address] [place] [address] Care Team Providers Care Supervisor Drying Name Role Phone Pcp, No Primary Care Provider Unavailabl e Reason for Visit * Reason Onset Date Comments HCN Clinical Concern/Question 11/25/2024 Encounter Details Date Type Department Care Team (Late st Contact Info) Description 11/25/2024 Telephone [facility] [address], [address] [place] [address] Whitney Pereyra APRN [address] [place] [address] HCN Clinical Concern/Question Social History [...] If you could please fax that to [phone]. If you could please let Mom know when that has been done. Thank you. Best contact number: Other: [phone] Optimal time of day to reach caller: ANYTIME Additional comments/information from caller: None Note: Please do not reply to this message. Follow-up communication and further actions as a result of this message need to be communicated with the patient directly, if the patient is not active onMyChart. If the patient is active on MyChart, they will receive notification of the communication/outcome via [id number]. documented in this encounter Plan of Treatment Upcoming Encounters Date Type Department Care Team (Late st Contact Info) Description 07/05/2025 2:00 PM EST Office [facility] [place] [facility] [address], [address] [place] [address] Liset Castro MD [address] [place] [address] documented as of this encounter Visit Diagnoses Not on filedocumented in this encounter Additional Health Concerns Assessment Noted Time A Body Mass Index follow-up plan has been documented for the patient 11/02/2024 1:55 PM EDT documented as of this encounter Care Teams Supervisor Drying Relationship Specialty Start Date End Date Pcp, [place] [address] PCP - General Family Medicine 10/26/24 documented as of this encounter
--- OUTSIDE RECORDS SUMMARY | 2025-01-19 10:43 | XMS_ITS | Encounter Summary ---
Author Organization Healthcare Address [address] [place] [address] Care Team Providers Care Drilling Contractor Name Role Phone Pcp, No Primary Care [...] Visit [place] [facility] [address], [address] [place] [address] Liset Castro MD [address] [place], [place] [id number] documented as of this encounter Visit Diagnoses Not on filedocumented in this encounter Additional Health Concerns Assessment Noted Time A fall risk assessment has been complete d for the patient 01/04/2025 1:24 PM EDT A Body Mass Index follow-up plan has been documented for the patient 01/04/2025 2:44 PM EDT documented as of this encounter Care Teams Drilling Contractor Relationship Specialty Start Date End Date Pcp, Dhara [facility] [place] [address] PCP - General Family Medicine 10/26/24 documented as of this encounter
--- OUTSIDE RECORDS SUMMARY | 2025-01-19 10:43 | XMS_ITS | Encounter Summary ---
Author Organization Healthcare Address [address] [place] [address] Care Team Providers Care Fruit Canner Name Role Phone Pcp, No Primary Care Provider Unavailabl e Encounter Details Date Type Department Care Team (Late st Contact Info) Description 12/23/2024 Telephone [facility] [address], [address] [place] [address] Rocky Mckenna MD [address] [place] [address] Social History Tobacco Use Types [...] encounter Miscellaneous Notes * Telephone Encounter - Tori [place] - 12/23/2024 12:41 PM EDT Patient Phone Message Reason for Call: Patient is requesting a call back to his mother for scheduling with Dr. Mckenna. Confirmed this is correct. No open slots available. Please work in, Best contact number and optimal time of day to reach caller: [phone] best number Note: Please do not reply [...] 2:00 PM EST Office [facility] [address], [address] [place] [address] Liset Castro MD [address] [place] [address] [place], [place] [phone] documented as of this encounter Visit Diagnoses Not on filedocumented in this encounter Additional Health Concerns Assessment Noted Time A Body Mass Index follow-up plan has been documented for the patient 11/02/2024 1:55 PM EDT documented as of this encounter Care Teams Fruit Canner Relationship Specialty Start Date End Date Pcp, No [address] [place] [address] PCP - General Family Medicine 10/26/24 documented as of this encounter
--- OUTSIDE RECORDS SUMMARY | 2025-01-19 10:43 | XMS_ITS | Encounter Summary ---
Author Organization Healthcare Address [address] [place] [address] Care Team Providers Care Transition Program Manager Name Role Phone Pcp, No Primary Care Provider Unavailabl e Encounter Details Date Type Department Care Team (Late st Contact Info) Description 12/01/2024 Telephone [place] [facility] [address], [address]nd [place] [address] Jasmine Quick, [address] [place] [address] Social History Tobacco Use Types [...] on 12/08/2024 at 0938 and spoke with calender let off operator Alexx lindsay who confirmed neurology referral was received and their health and safety coordinator will reach out to schedule soon. * Telephone Encounter - Viki Lovell RN - 12/10/2024 3:57 PM EDT I faxed referral on 12/08/2024 at 0938 and spoke with calender let off operator Alexx lindsay who confirmed neurology referral was received and their health and safety coordinator will reach out to schedule soon. * Telephone Encounter - Jasmine Quick GC - 12/01/2024 10:32 AM EDT Family was following up on referral to Neurologist: Leda Villeda at [facility], fax [phone] Junaid Jalloh [address] [place] [address] - mail results to family * Telephone Encounter - Nito Orourke - 12/01/2024 10:25 AM EDT Clinical Concern/Question Reason for Call: pt's calling because pt's records need to be sent to Neuro for treatment plan, please callback to discuss tino Best contact number: [phone] (home) Optimal time of day to reach [...] Description 07/05/2025 2:00 PM EST Office Visit [facility] [address], [address] [place] [address] Liset Castro MD [address] [place] [address] documented as of this encounter Visit Diagnoses Not on filedocumented in this encounter Additional Health Concerns Assessment Noted Time A Body Mass Index follow-up plan has been documented for the patient 11/02/2024 1:55 PM EDT documented as of this encounter Care Teams Transition Program Manager Relationship Specialty Start Date End Date Pcp, No [address] [place] [address] PCP - General Family Medicine 10/26/24 documented as of this encounter
--- NOTE | 2025-01-19 10:54 | ED_ITS ---
<Statement entered by Altagracia Moreno MD - 01/19/25 15:18> I was consulted by the CHARLENE, and we discussed the complexity of the problems being addressed. I approved the treatment and management plan for this patient's care in the emergency department, thus performing a substantive portion of the medical decision making. Altagracia Moreno MD, REAGAN, FACEP Discharge Plan Disposition Patient Disposition: Home, Self-Care Condition: Good Referrals Follow up/Referrals: Provider,Referral, [Primary Care Provider, Medical] - See instructions Activity Restrictions/Add. Instructions Additional Instructions/Restrictions: As before. Area clean dry open to air. He may wash with soap and water. Return for any increasing redness pain swelling drainage. Katie need to come out in 7 to 10 days. Clinical Impressions Clinical Impression: Laceration Instructions Patient Instructions: DI for Laceration Repair Print Language Print Language: Nigerian Discharge ED Provider: Altagracia Moreno General Adult HPI General Chief complaint: Wound/Laceration Stated complaint: staple removal from head Time Seen by Provider: 01/19/25 10:54 History of Present Illness HPI narrative: Patient presented initially for staple removal. I repaired the patient's scalp lack 5 days ago. He returned today for staple removal. Nurse began removing katie however midway through patient began having bleeding. At the time my exam wound was slightly gaping and the remainder of the katie were left in. Related Data Allergies Allergy/AdvReac Type Severity Reaction Status Date / Time No Known Allergies Allergy Verified 01/14/25 15:04 [facility] Disclaimer: The information contained in this section may have been updated after the patient was seen, as this information can be updated by other users. Social History (Updated 01/14/25 @ 16:16 by CORINNE Gutierrez) Smoking Status: Current every day smoker alcohol intake: never current occupational status: employed Travel in the last 8 weeks?: None Have you lived/traveled outside US in past 30 days?: No Contact w/someone who lives/traveled outside US past 30 days?: No Exposure to someone with infectious disease in past 14 days?: No Do you have a fever (greater than 100.4 F or 38 C)?: No Have you tested positive for COVID-19?: No Exposed to someone with COVID-19 in past 14 days?: No Do you have a sore throat?: No Do you have a cough?: No Do you have any weakness?: No Do you have any diarrhea?: No Are you experiencing any unusual bleeding?: No Do you have any muscle aches/pain?: No Do you have any abdominal pain?: No Are you experiencing loss of taste or smell?: No ROS Obtained: Yes Systems reviewed as appropriate & no additional complaints except as documented Physical Exam General General appearance: alert Respiratory Respiratory exam: Present normal lung sounds bilaterally Cardiovascular Cardiovascular exam: Present regular rate Neurological Exam Neurological exam: Present alert and oriented X3 Medical Decision Making Medical Records Medical records reviewed: Yes I reviewed the patient's medical records. Screening: Per USPSTF and CDC recommendations, given the prevalence of disease in our region, it is our hospital?s policy to screen for HIV and viral Hepatitis for all patients aged 18 and over and those with ongoing risk factors. Chance Inquiry Pt receiving controlled substance: No Vital Signs: 01/19/25 10:38 01/19/25 10:59 01/19/25 11:59 Temperature 98.1 F 98.5 F 97.8 F Temperature Source Oral Pulse Rate 92 H 79 Pulse Rate [Left] 103 H Respiratory Rate 14 20 19 Blood Pressure 128/80 126/54 L Blood Pressure [Right Arm] 126/97 H Blood Pressure Mean [Right Arm] 106 02 Sat by Pulse Oximetry 98 Oxygen Delivery Method Room Air Room Air Orders (Tests/Meds): ED MEDICATIONS Discontinued Medications Generic Name Dose Route Start Last Admin Trade Name Freq PRN Reason Stop Dose Admin Acetaminophen 1,000 mg 01/19/25 11:45 01/19/25 11:48 Acetaminophen 500mg Tab PO 01/19/25 11:46 1,000 mg ONCE ONE Administration Cocaine HCl 1 ml 01/19/25 10:55 01/19/25 11:05 Cocaine 4% Topical Soln 4ml Bottle TP 01/19/25 10:56 1 ml ONCE ONE Administration Epinephrine HCl 1 mg 01/19/25 10:55 01/19/25 11:05 Epinephrine 1 Mg/Ml Ampul TP 01/19/25 10:56 1 mg ONCE ONE Administration Lidocaine HCl 1 ml 01/19/25 10:55 01/19/25 11:05 Lidocaine 2% Urojet 10ml TP 01/19/25 10:56 1 ml ONCE ONE Administration Medical Decision Narrative: In summary patient is a 34-year-old male who presents to the emergency department for evaluation of initially staple removal however patient began having bleeding and dehiscence before all the katie were taken out. Patient is hemodynamically stable upon arrival, afebrile. Physical exam most remarkable for a well healing wound however patient has had slight opening of his laceration after staple removed in the midline. Differential diagnosis includes wound dehiscence versus bleeding. Initial workup was considered however has no evidence of red flags including redness drainage or pus thus deferred. Given this wound was repaired and cleaned and then LAC solution was applied. After adequate anesthesia 4 katie were placed back in for again a total of 7. Patient given wound care instructions and advised to return in 7 days for evaluation of suture removal and strict return precautions. Procedures Laceration Laceration 1: Site: scalp Size (cm): 2 Description: linear Depth: simple, single layer Local Anesthetic: other anesthetic (Topical LAC solution) Skin layer closed with: other (4 katie) Number of sutures: 4 Critical Care Critical Care Time Critical Care Time: No
[2025-01-19 10:59] VITALS: BP 126/97; PULSE 103; RESP 20; TEMP 36.9; O2SAT 98; BMI 23.0
[2025-01-19] MEDS: COCAINE 4% TOPICAL SOLN 4ML BOTTLE 1 ML TP (11:05)
[2025-01-19] MEDS: LIDOCAINE 2% UROJET 10ML TP (11:05)
[2025-01-19] MEDS: EPINEPHrine 1 MG/ML AMPUL TP (11:05)
[2025-01-19] MEDS: ACETAMINOPHEN 500MG TAB 1000 MG PO (11:48)
[2025-01-19 11:59] VITALS: BP 126/54; PULSE 79; RESP 19; TEMP 36.6; O2SAT 98
== END 2025-01-19 12:00 | disposition home or self-care (01) ==
PROVIDERS: Emergency Provider Student in an Organized Health Care Education/Training Program
DX: S01.01XA Laceration without foreign body of scalp, initial encounter (principal); X58.XXXA Exposure to other specified factors, initial encounter
CPT/HCPCS: 99281; J0171

== ENCOUNTER 2025-01-26 11:16 | Emergency (ER) | payer MEDICAID, SELFPAY ==
--- OUTSIDE RECORDS SUMMARY | 2024-12-28 13:15 | XMS_ITS | Encounter Summary ---
Author Organization [place] [address] Care Team Providers Care Analytics Senior Manager Name Role Phone Darleen Trujillo MD Primary Care Provider [phone] Reason for Visit * Reason Comments Annual Exam Encounter Details Date Type Department Care Team (Late st Contact Info) Description 12/28/2024 1:15 PM EDT Office Visit [address] [address] Darleen Trujillo MD [address] [place] [address] Annual physical exam (Primary Dx); Jojo disease (HCC); Memory disturbance Social History Tobacco Use Types Packs/Day Years Used Date Smoking Tobacco: Every Day Cigarettes 2 17.5 Started: 2007 Smokeless Tobacco: Never Tobacco Cessation:Ready to Q uit: No; Counseling Given: Yes Comments:Everton muniz PHQ-2 Answer Date Recorded PHQ-2 Total Score 0 12/28/2024 Sexually Active Control Partners Comments Not Currently Sex and Gender Information Value Date Recorded Sex Assigned at Not on file Legal Sex Male 4:06 PM EST Gender Identity Not on file Sexual Orientation Not on file documented as of this encounter Last Filed Vital Signs Vital Sign Reading Time Taken Comments Blood Pressure 112/82 12/28/2024 1:12 PM EDT Pulse - - Temperature 36.9 C (98.5 F) 12/28/2024 1:12 PM EDT Respiratory Rate - - Oxygen Saturation - - Inhaled Oxygen Concentration - - Weight 58.5 kg (129 lb) 12/28/2024 1:12 PM EDT Height 160 cm (5' 3 ) 12/28/2024 1:12 PM EDT Body Mass Index 22.85 12/28/2024 1:12 PM EDT documented in this encounter Functional Status * Cognitive and Functional Status Question Answer Date of Assessment Author Is the person deaf or does he/she have serious difficulty hearing? No 12/28/2024 1:11 PM EDT Leda Mendez RMA Is the person blind or does he/she have serious difficulty seeing even when wearing glasses? No 12/28/2024 1:11 PM EDT Leda Mendez RMA Does this person have seriou s difficulty walking or climbing stairs? No 12/28/2024 1:11 PM EDT Leda Mendez RMA Does this person have difficulty dressing or bathing? No 12/28/2024 1:11 PM EDT Leda Mendez RMA * Is the person deaf or does he/she have serious difficulty hearing? Answer Date of Assessment Author No 12/28/2024 1:11 PM EDT Leda Mendez RMA * Is the person blind or does he/she have serious difficulty seeing even when wearing glasses? Answer Date of Assessment Author No 12/28/2024 1:11 PM EDT Leda Mendez RMA * Does this person have serious difficulty walking or climbing stairs? Answer Date of Assessment Author No 12/28/2024 1:11 PM EDT Leda Mendez RMA * Does this person have difficulty dressing or bathing? Answer Date of Assessment Author No 12/28/2024 1:11 PM EDT Leda Mendez RMA * Because of a physical, mental or emotional condition, does this person have difficulty doing errands alone such as visiting a doctor's office or shopping? Answer Date of Assessment Author No 12/28/2024 1:11 PM EDT Leda Mendez RMA * PHQ-9 Total Score Answer Date of Assessment Author 0 12/28/2024 1:12 PM EDT Leda Mendez RMA * Question Answer Date of Assessment Author Little interest or pleasure in doing things 0 12/28/2024 1:12 PM EDT Leda Mendez RMA Feeling down, depressed, or hopeless 0 12/28/2024 1:12 PM EDT Leda Mendez RMA PHQ-2 Total Score 0 12/28/2024 1:12 PM EDT Leda Mendez RMA * Question Answer Date of Assessment Author Feeling Nervous, Anxious, or on Edge 0 12/28/2024 1:12 PM EDT Leda Mendez RMA Not Being Able to Stop or Control Worrying 0 12/28/2024 1:12 PM EDT Leda Mendez RMA Worrying too Much About Different Things 0 12/28/2024 1:12 PM EDT Leda Mendez RMA Trouble Relaxing 0 12/28/2024 1:12 PM EDT S Leda drake RMA Being so Restless That it is Hard to Sit Still 0 12/28/2024 1:12 PM EDT Leda Mendez RMA Becoming Easily Annoyed or Irritable 0 12/28/2024 1:12 PM EDT Leda Mendez RMA Feeling Afraid as if Something Awful Might Happen 0 12/28/2024 1:12 PM EDT Leda Mendez RMA TRICIA-7 Total Score 0 12/28/2024 1:12 PM EDT Leda Mendez RMA documented as of this encounter Mental Status * Cognitive and Functional Status Question Answer Entry Date Author Because of a physical, menta l or emotional condition, does this person have difficulty doing errands alone such as visiting a doctor's office or shopping? No 12/28/2024 1:11 PM EDT Leda Mendez RMA Because of a physical, menta l or emotional condition, does this person have serious difficulty concentrating, remembering or making decisions? No 12/28/2024 1:11 PM EDT Leda Mendez RMA * Because of a physical, mental or emotional condition, does this person have serious difficulty concentrating, remembering or making decisions? 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 - He reports no weakness or falls at this time. - It is recommended to start physical therapy to maintain muscle strength and address potential mood issues. - A referral to a specialist who treats [place]'s disease will be pursued, preferably one [place] location due to transportation challenges. If no response is received within a month, further action will be taken to ensure he gets the necessary care. Copies of his medical records will be made for further review. 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 Allyson Jalloh is a 34 y.o. male Chief Complaint Patient presents with Annual Exam Well Adult: Subjective Mr. Jalloh is a 34 y.o. male here for an annual wellness visit. Diet: good Exercise: good Activities of Daily Living: Functional Level: Self-care ADL Limitations: none Social Interaction Screen: Do you have concerns about issues that may impact social interaction such as developmental or behavioral/mental health conditions? no Health Maintenance Due Topic Date Due Annual Wellness Exam 04/16/2024 Health Maintenance Topic Date Due Annual Wellness Exam 04/16/2024 DTaP/TDaP/Td (2 - Tdap) 12/29/2024 (Originally 01/29/2003) COVID-19 Vaccine ( - 2023- season) 2024 (Originally 04/04/2024) Pneumococcal Vaccine 0-49 (1 of 2 - PCV) 12/29/2024 (Originally 2009) Influenza Vaccine (Season Ended) 2025 Hepatitis B Vaccine Completed Meningococcal B Vaccine Aged Out Immunization History Administered Date(s) Administered Hepatitis A, Adult 07/17/2021 Hepatitis B, Ped/Adol 01/28/2003, 02/28/2003, 09/09/2003 MMR 03/19/1996 Td (Adult), Absorbed 01/28/2003 Patient Active Problem List Diagnosis Astigmatism Chronic back pain Chronic tension-type headache, not intractable Family history of [place]'s disease [place] disease (HCC) History reviewed. No pertinent past medical history. History reviewed. No pertinent surgical history. No Known Allergies No current outpatient medications on file prior to visit. No current facility-administered medications on file prior to visit. Social History Socioeconomic History Marital status: Spouse name: None Number of children: None Years of education: None Highest education level: None Tobacco Use Smoking status: Every Day Current packs/day: 2.00 Average packs/day: 2.0 packs/day for 17.4 years (34.8 ttl pk-yrs) Types: Cigarettes Start date: 2007 Smokeless tobacco: Never Tobacco comments: Everton muniz Substance and Sexual Activity Drug use: Not Currently Sexual activity: Not Currently Family History Problem Relation Age of Onset Other (huntingtons disease) Father No results found. No results found for this visit on 12/28/24. Patient Care Team: Darleen Trujillo MD as PCP - General (Family Medicine) No results found for: WBC , HGB , HCT , PLT , CHOL , CHOLESTEROL , TRIG , HDL , LDLDIRECT , LDLCALC , ALT , AST , NA , K , CL , CREATININE , BUN , CO2 , TSH , INR , GLUCOSE , GLU , HGBA1C , MICROALBUR , TSHREFLEX Additional issues addressed today: History of Present Illness The patient presents for [place]'s disease. He has been diagnosed with [place]'s disease, a condition that also claimed his father's life 2 years ago. The family is actively seeking a referral to Dr. Amanda Mendez, a neurologist, and is exploring the possibility of initiating treatment, including medication. They are also considering participation in stem cell research. He reports no instances of weakness or falls. His sleep pattern has been disrupted, with early awakenings and difficulty falling asleep, even with the aid of melatonin. He has a history of a severe accident at the age of 3, which required 37 stitches. FAMILY HISTORY His father 2 years ago from Jojo's disease. Review of Systems Constitutional: Negative. HENT: Negative. Respiratory: Negative. Cardiovascular: Negative. Gastrointestinal: Negative. Musculoskeletal: Negative. Psychiatric/Behavioral: Positive for decreased concentration. Objective Blood pressure 112/82, temperature 98.5 ??F (36.9 ??C), height 5' 3 (1.6 m), weight 129 lb (58.5 kg). Body mass index is 22.85 kg/m??. Physical Exam Respiratory: Clear to auscultation, no wheezing, rales or rhonchi Cardiovascular: Regular rate and rhythm, no murmurs, rubs, or gallops Physical Exam Vitals and nursing note reviewed. HENT: Head: Normocephalic. Cardiovascular: Rate and Rhythm: Normal rate. Heart sounds: No murmur heard. Pulmonary: Effort: Pulmonary effort is normal. Breath sounds: No wheezing. Abdominal: General: There is no distension. Palpations: Abdomen is soft. Neurological: General: No focal deficit present. Mental Status: He is alert. Results Diagnostic Testing - Genetic Test for [place]'s Disease: Heterozygous for 45 CAG The provider educated the patient (or legal agricultural sales representative) on the use of the ambient listening artificial intelligence tool, [employer]. They were informed that this AI tool processes the conversation to generate a clinical note with the expected benefit of improved accuracy while achieving an improved encounter experience for the patient and provider.?The provider explained that the medical information captured by the AI tool including, but not limited to, diagnoses and treatment plan would be protected in accordance with applicable privacy laws and that all diagnoses and treatment decisions would be made by the provider. The provider explained that the note generated will be reviewed bythe provider for accuracy to minimize potential errors.? The patient was given an opportunity to ask questions and opt out of proceeding with the use of the AI tool. After being informed of such information, the patient (or legal agricultural sales representative), and each individual in attendance with the patient, verbally consented to the use of the AI tool. documented in this encounter Plan of Treatment Not on file documented as of this encounter Goals Goal Patient Goal Type Associated Problems Recent Progress Patient-Stated? Author Maintain a healthy diet, exercise regularly and maintain an ideal body weight General Zara Angela CCMA Stay Tobacco Free Lifestyle Zara Anegla CCMA documented as of this encounter Procedures Procedure Name Priority Date/Time Associated Diagnosis Comments GENETIC SCANNING 12/29/2024 6:25 PM EDT documented in this encounter Results * GENETIC SCANNING (12/29/2024 6:25 PM EDT) 12/29/2024 6:25 PM EDT us Unknown Provider HEMATOLOGY ORDERABLES Final Res ult documented in this encounter Visit Diagnoses Diagnosis Annual physical exam- Primary Routine general medical examination at a health care facility Silverton disease (HCC) Silverton's chorea Memory disturbance Memory loss documented in this encounter Care Teams Analytics Senior Manager Relationship Specialty Start Date End Date Darleen Trujillo MD [address] [place] [address] PCP - General Family Medicine 04/16/23 documented as of this encounter
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
[2025-01-26 11:25] VITALS: BP 158/76; PULSE 110; RESP 17; TEMP 36.9; O2SAT 99; BMI 22.8
--- NOTE | 2025-01-26 11:29 | HMH.EDGENADL ---
Discharge Plan Disposition Patient Disposition: Home, Self-Care Referrals Follow up/Referrals: Provider,Referral, MD [Primary Care Provider, Medical] - See instructions Activity Restrictions/Add. Instructions Additional Instructions/Restrictions: Wash area with soap and water. Follow-up with your PCP with any problems or concerns. Clinical Impressions Clinical Impression: Encounter for removal of sutures Instructions Patient Instructions: DI for Suture Removal Print Language Print Language: Mongolian Discharge ED Provider: Jaret Seth General Adult HPI <Zainab Watkins (ED), ORTHOPEDIC PODIATRIST - Last Filed: 01/26/25 12:23> General Chief complaint: Recheck/Abnormal Lab/Rx Stated complaint: staple removal-recheck Time Seen by Provider: 01/26/25 11:19 History of Present Illness HPI narrative: 34-year-old male presents to the ED today to have his sutures removed. He says a crowbar fell and hit the back of his head. He had them looked out on Friday and they started to remove some of them and they had to be replaced because the wound came apart. Today the wound looks very healed and scabbed over. We will remove all 6 renate today. Related Data Allergies Allergy/AdvReac Type Severity Reaction Status Date / Time No Known Allergies Allergy Verified 01/14/25 15:04 PFSH <Zainab Watkins (ED), ORTHOPEDIC PODIATRIST - Last Filed: 01/26/25 12:23> [facility] Disclaimer: The information contained in this section may have been updated after the patient was seen, as this information can be updated by other users. Social History (Updated 01/14/25 @ 16:16 by CORINNE Gutierrez) Smoking Status: Current every day smoker alcohol intake: never current occupational status: employed Travel in the last 8 weeks?: None Have you lived/traveled outside US in past 30 days?: No Contact w/someone who lives/traveled outside US past 30 days?: No Exposure to someone with infectious disease in past 14 days?: No Do you have a fever (greater than 100.4 F or 38 C)?: No Have you tested positive for COVID-19?: No Exposed to someone with COVID-19 in past 14 days?: No Do you have a sore throat?: No Do you have a cough?: No Do you have any weakness?: No Do you have any diarrhea?: No Are you experiencing any unusual bleeding?: No Do you have any muscle aches/pain?: No Do you have any abdominal pain?: No Are you experiencing loss of taste or smell?: No <Zainab Kilcourtney (ED), ORTHOPEDIC PODIATRIST - Last Filed: 01/26/25 12:23> ROS Obtained: Yes Systems reviewed as appropriate & no additional complaints except as documented Constitutional Constitutional: Reports as per HPI Physical Exam <Zainab Watkins (ED), ORTHOPEDIC PODIATRIST - Last Filed: 01/26/25 12:23> General General appearance: alert and in no apparent distress Head Head exam: normal inspection (6 renate intact with healed laceration) Eye Eye exam: Present PERRL and EOMI ENT ENT exam: Present normal oropharynx and mucous membranes moist Neck Neck exam: Present full ROM and trachea midline Respiratory Respiratory exam: Present normal lung sounds bilaterally Cardiovascular Cardiovascular exam: Present regular rate, normal rhythm, normal heart sounds, +S1 and +S2 Neurological Exam Neurological exam: Present alert, oriented X3 and normal gait Skin Skin exam: Present warm, dry and intact Medical Decision Making <Zainabmaame Watkins (ED), ORTHOPEDIC PODIATRIST - Last Filed: 01/26/25 12:23> Medical Records Medical records reviewed: Yes I reviewed the patient's medical records. Screening: Per USPSTF and CDC recommendations, given the prevalence of disease in our region, it is our hospital?s policy to screen for HIV and viral Hepatitis for all patients aged 18 and over and those with ongoing risk factors. Chance Inquiry Pt receiving controlled substance: No Chance was queried for this patient: No Vital Signs: 01/26/25 11:25 01/26/25 11:52 Temperature 98.4 F 98.4 F Temperature Source Oral Oral Pulse Rate 95 H Pulse Rate [Right] 110 H Respiratory Rate 17 18 Blood Pressure 145/78 H Blood Pressure [Right Arm] 158/76 H Blood Pressure Mean [Right Arm] 103 Blood Pressure Source Automatic Cuff Blood Pressure Source [Right Arm] Automatic Cuff 02 Sat by Pulse Oximetry 99 Oxygen Delivery Method Room Air Room Air Medical Decision Narrative: patient is a 34-year-old male presenting to the emergency department for evaluation of renate to be removed. Patient is hemodynamically stable and nontoxic-appearing upon arrival, afebrile. Differential diagnosis includes staple removal. Laceration is well-healed with 6 renate. We will remove renate today. Patient will be safe for discharge home. <Jaret Seth MD - Last Filed: 01/26/25 13:12> Vital Signs: 01/26/25 11:25 01/26/25 11:52 Temperature 98.4 F 98.4 F Temperature Source Oral Oral Pulse Rate 95 H Pulse Rate [Right] 110 H Respiratory Rate 17 18 Blood Pressure 145/78 H Blood Pressure [Right Arm] 158/76 H Blood Pressure Mean [Right Arm] 103 Blood Pressure Source Automatic Cuff Blood Pressure Source [Right Arm] Automatic Cuff 02 Sat by Pulse Oximetry 99 Oxygen Delivery Method Room Air Room Air Medical Decision Narrative: patient is a 34-year-old male presenting to the emergency department for evaluation of renate to be removed. Patient is hemodynamically stable and nontoxic-appearing upon arrival, afebrile. Differential diagnosis includes staple removal. Laceration is well-healed with 6 renate. We will remove renate today. Patient will be safe for discharge home. I was consulted by the CHARLENE, and we discussed the complexity of the problems being addressed. I approved the treatment and management plan for this patient's care in the Emergency Department, thus performing a substantive portion of the medical decision making. Jaret Seth MD Critical Care <Zainab Watkins (ED), ORTHOPEDIC PODIATRIST - Last Filed: 01/26/25 12:23> Critical Care Time Critical Care Time: No
--- OUTSIDE RECORDS SUMMARY | 2025-01-26 11:37 | XMS_ITS | Clinical Summary ---
Author Organization 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 Chronic back pain 10/24/2023 Chronic tension-type headache, not intractable 0 10/24/2023 Family history of Custer's disease Encounters Date Type Department Care Team Description 12/28/2024 1:15 PM EDT Office Visit [facility] [address] [place] [address] Darleen Trujillo MD Annual physical exam (Primary Dx); Custer disease (HCC); Memory disturbance from Last 3 [...] Res ult from Last [address] [place] [address] [place] [id number] [place] Care Teams Leather Goods Maker Relationship Specialty Start Date End Date Darleen Trujillo MD [address] [place] [address] PCP - General Family Medicine 04/16/23
--- OUTSIDE RECORDS SUMMARY | 2025-01-26 11:37 | XMS_ITS | Encounter Summary ---
Author Organization Healthcare Address [address] [place] [address] Care Team Providers Care Director Sales Name Role Phone Pcp, No Primary Care Provider Unavailabl e Encounter Details Date Type Department Care Team (Late st Contact Info) Description 12/20/2024 Telephone [facility] [address], [address] [place] [address] None, None [address] [place], [place] [id number] Social History Tobacco Use Types Packs/Day Years [...] was faxed and patient was seen by [facility] Neurology on 01/21/2025 at 1400. * Telephone Encounter - Nito Orourke - 12/20/2024 9:24 AM EDT Clinical Concern/Question Reason for Call: pt's mother calling because prior referral was sent to clinic that does not acceptpt's insurance, please send new referral to Dr Rocky Mckenna, fax #[phone] Best contact number: [phone] (home) Optimal time of day to reach caller: ANYTIME Additional comments/information from caller: None Note: Please do not reply to this message. Follow-up communication and further actions as a result of this message need to be communicated with the patient directly, if the patient is not active onMyChart. If the patient is active on MyChart, they will receive notification of the communication/outcome via [employer]. documented in this encounter Plan of Treatment Upcoming Encounters Date Type Department Care Team (Late st Contact Info) Description 07/05/2025 2:00 PM EST Office Visit [facility] [address], [address]st [place] [address] Liset Castro MD [address] [place] [address] documented as of this encounter Visit Diagnoses Not on filedocumented in this encounter Additional Health Concerns Assessment Noted Time A Body Mass Index follow-up plan has been documented for the patient 11/02/2024 1:55 PM EDT documented as of this encounter Care Teams Director Sales Relationship Specialty Start Date End Date Pcp, Dhara [address] [place] [address] PCP - General Family Medicine 10/26/24 documented as of this encounter
--- OUTSIDE RECORDS SUMMARY | 2025-01-26 11:37 | XMS_ITS | Encounter Summary ---
Author Organization Healthcare Address [address] [place] [address] Care Team Providers Care Senior Property Accountant Name Role Phone Pcp, No Primary Care [...] Visit [place] [facility] [address], [address] [place] [address] Liset Castro MD [address] [place], [place] [phone] documented as of this encounter Visit Diagnoses Not on filedocumented in this encounter Additional Health Concerns Assessment Noted Time A fall risk assessment has been complete d for the patient 01/04/2025 1:24 PM EDT A Body Mass Index follow-up plan has been documented for the patient 01/04/2025 2:44 PM EDT documented as of this encounter Care Teams Senior Property Accountant Relationship Specialty Start Date End Date Pcp, Dhara [facility] [place][note 2] [place] [address] PCP - General Family Medicine 10/26/24 documented as of this encounter
--- OUTSIDE RECORDS SUMMARY | 2025-01-26 11:37 | XMS_ITS | Encounter Summary ---
Author Organization Healthcare Address [address] [place] [address] Care Team Providers Care Chargemaster Specialist Name Role Phone Pcp, No Primary Care Provider Unavailabl e Encounter Details Date Type Department Care Team (Late st Contact Info) Description 12/23/2024 Telephone [place] [facility] [address], [address] [place] [address] Rocky Mckenna MD [address] [place] [address] Social History Tobacco Use Types [...] optimal time of day to reach caller: [phone] best number Note: Please do not reply [...] Description 07/05/2025 2:00 PM EST Office Visit [place] [facility] [address], [address] [place] [address] Liset Castro MD [address] [place], [place] [phone] documented as of this encounter Visit Diagnoses Not on filedocumented in this encounter Additional Health Concerns Assessment Noted Time A Body Mass Index follow-up plan has been documented for the patient 11/02/2024 1:55 PM EDT documented as of this encounter Care Teams Chargemaster Specialist Relationship Specialty Start Date End Date Pcp, No [address] [place] [address] PCP - General Family Medicine 10/26/24 documented as of this encounter
--- OUTSIDE RECORDS SUMMARY | 2025-01-26 11:37 | XMS_ITS | Encounter Summary ---
Author Organization Healthcare Address [address] [place] [address] Care Team Providers Care Visitor Services Representative Name Role Phone Pcp, No Primary Care Provider Unavailabl e Encounter Details Date Type Department Care Team (Late st Contact Info) Description 12/31/2024 Telephone [facility] [address] [place] [address] Neurology, Physician, [address] [place] [address] Social History Tobacco Use Types Packs/Day Years [...] Description 07/05/2025 2:00 PM EST Office Visit [facility] [address] [place] [address] Liset Castro MD [address] [place] [address] documented as of this encounter Visit Diagnoses Not on filedocumented in this encounter Additional Health Concerns Assessment Noted Time A Body Mass Index follow-up plan has been documented for the patient 11/02/2024 1:55 PM EDT documented as of this encounter Care Teams Visitor Services Representative Relationship Specialty Start Date End Date Pcp, [place] [address] PCP - General Family Medicine 10/26/24 documented as of this encounter
--- OUTSIDE RECORDS SUMMARY | 2025-01-26 11:37 | XMS_ITS | Encounter Summary ---
Author Organization Healthcare Address [address] [place] [address] Care Team Providers Care Surgical Endoscopist Name Role Phone Pcp, No Primary Care Provider Unavailabl e Reason for Referral * Consultation (Routine) - Closed Specialty Diagnoses / Procedures Referred By Contjake t Referred To Contact Neurology Diagnoses Jojo disease (CMS/HCC) Whitney Pereyra APRN [address] [place] [address] Phone: tel: fax: Referral ID Status Reason Start Date Expiration Date V isits Requested Visits Authorized [id number] Closed Specialty Services Required 12/01/2024 06/02/2026 1 1 Scheduling Instructions Please send referral to Leda Villeda at [facility] per family/patient request. Encounter Details Date Type Department Care Team (Late st Contact Info) Description 12/01/2024 Orders Only [facility]ty [address] [place] [address] Whitney Pereyra APRN [address] [place] [address] [place] disease (CMS/HCC) (Primary Dx) Social History Tobacco [...] Description 07/05/2025 2:00 PM EST Office Visit [facility] [address] [place] [phone] Liset Castro MD [address] [place] [address] Scheduled Referrals Name Type Priority Associated Diagnoses Order Schedule Ambulatory referral to Neurology Outpatient Referral Routine [place] disease (CMS/HCC) 1 Occurrences starting 12/01/2024 until 06/02/2026 documented as of this encounter Visit Diagnoses 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
--- OUTSIDE RECORDS SUMMARY | 2025-01-26 11:37 | XMS_ITS | Clinical Summary ---
Author Organization Healthcare Address [address] [place] [address] Care Team Providers Care Uniform Force Captain Name Role Phone Pcp, No Primary Care Provider Unavailabl e Allergies No known active allergies Medications No known medications Active Problems Problem Noted Date Diagnosed Date Family history of Hettinger's disease Missing teeth, acquired 10/24/2023 Chronic tension-type headache, not intractable 0 10/24/2023 Chronic back pain 10/24/2023 Wears glasses 10/24/2023 Astigmatism 10/24/2023 Encounters Date Type Department Care Team Description 01/04/2025 2:00 PM EDT Consult [facility] [address] [place] [address] Liset Castro MD 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 Travel 12/31/2024 Telephone [facility] [address], [address] [place] [address] Neurology, Physician, 12/23/2024 Telephone [facility] [address], [address] [place] [address] Rocky Mckenna MD 12/20/2024 Telephone [facility] [address] [place] [address] None, None 12/01/2024 Orders Only [facility] [address], [address] [place] [phone] Whitney Pereyra, WEAVING SUPERVISOR Jojo disease ([facility]/HCC) (Primary Dx) 12/01/2024 Telephone [facility] [address], [address] [place] [phone] Jasmine Quick GC 11/25/2024 Telephone [facility] [address], [facility] [place] [address] Whitney Pereyra, WEAVING SUPERVISOR HCN Clinical Concern/Question 11/16/2024 Telephone [facility] [address], [address] [place] [address] [place] [address] Whitney Pereyra, WEAVING SUPERVISOR HCN - Patient Message 10/26/2024 10:00 AM EDT Office Visit [facility] [address], [address] [place] [phone] Jasmine Quick, RITA 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) 10/26/2024 Travel from Last 3 Months Family History Medical History Relation Name Comments Hettinger's disease Father Relation Name Status Comments Father [...] Visit [place] [facility] [address] [place] [address] Liset Castro MD [address] [place] [address] Health Maintenance Due Date Last Done [...] Years) (1 of 2 - PCV) 2009 [id number] Vaccine ( - season) 2024 [facility]-Depression Screening [...] to complete this topic Insurance [place] [address] Care Teams Uniform Force Captain Relationship Specialty Start Date End Date Pcp, [place] [address] PCP - General Family Medicine 10/26/24
--- OUTSIDE RECORDS SUMMARY | 2025-01-26 11:37 | XMS_ITS | Encounter Summary ---
Author Organization Healthcare Address [address] [place] [address] Care Team Providers Care Machine Rug Cleaner Name Role Phone Pcp, No Primary Care Provider Unavailabl e Encounter Details Date Type Department Care Team (Late st Contact Info) Description 12/01/2024 Telephone [facility] [address] [place] [address] Jasmine Quick, [address] [place] [address] Social History Tobacco Use Types [...] on 12/08/2024 at 0938 and spoke with crane hoist or lift operator Alexx lindsay who confirmed neurology referral was received and their clinical care coordinator will reach out to schedule soon. * Telephone Encounter - Viki Lovell RN - 12/10/2024 3:57 PM EDT I faxed referral on 12/08/2024 at 0938 and spoke with crane hoist or lift operator Alexx lindsay who confirmed neurology referral was received and their clinical care coordinator will reach out to schedule soon. * Telephone Encounter - Jasmine Quick GC - 12/01/2024 10:32 AM EDT Family was following up on referral to Neurologist: Leda Villeda at [facility], fax [phone] Junaid J[address]oh [address] [place] [address] - mail results to family * Telephone Encounter - Nito Orourke - 12/01/2024 10:25 AM EDT Clinical Concern/Question Reason for Call: pt's calling because pt's records need to be sent to Neuro for treatment plan, please callback to discuss tino Best contact number: [phone] (home) Optimal time of day to reach [...] Description 07/05/2025 2:00 PM EST Office Visit [facility] [address], [address] [place] [address] Liset Castro MD [address] [place] [address] documented as of this encounter Visit Diagnoses Not on filedocumented in this encounter Additional Health Concerns Assessment Noted Time A Body Mass Index follow-up plan has been documented for the patient 11/02/2024 1:55 PM EDT documented as of this encounter Care Teams Machine Rug Cleaner Relationship Specialty Start Date End Date Pcp, No [address] [place] [address] PCP - General Family Medicine 10/26/24 documented as of this encounter
--- OUTSIDE RECORDS SUMMARY | 2025-01-26 11:37 | XMS_ITS | Encounter Summary ---
Author Organization Healthcare Address [address] [place] [address] Care Team Providers Care Economics Instructor Name Role Phone Pcp, No Primary Care Provider Unavailabl e Reason for Visit * Reason Onset Date Comments HCN Clinical Concern/Question 11/25/2024 Encounter Details Date Type Department Care Team (Late st Contact Info) Description 11/25/2024 Telephone [facility] [address] [place] [address] Whitney Pereyra APRN [address] [place] [address] HCN Clinical Concern/Question Social History [...] If you could please fax that to [phone]. If you could please let Mom know when that has been done. Thank you. Best contact number: Other: [phone] Optimal time of day to reach caller: ANYTIME Additional comments/information from caller: None Note: Please do not reply to this message. Follow-up communication and further actions as a result of this message need to be communicated with the patient directly, if the patient is not active onMyChart. If the patient is active on MyChart, they will receive notification of the communication/outcome via [employer]. documented in this encounter Plan of Treatment Upcoming Encounters Date Type Department Care Team (Late st Contact Info) Description 07/05/2025 2:00 PM EST Office Visit [place] [facility] [address] [place] [address] Liset Castro MD [address] [place] [address] documented as of this encounter Visit Diagnoses Not on filedocumented in this encounter Additional Health Concerns Assessment Noted Time A Body Mass Index follow-up plan has been documented for the patient 11/02/2024 1:55 PM EDT documented as of this encounter Care Teams Economics Instructor Relationship Specialty Start Date End Date Pcp, [place] [address] PCP - General Family Medicine 10/26/24 documented as of this encounter
--- OUTSIDE RECORDS SUMMARY | 2025-01-26 11:37 | XMS_ITS | Encounter Summary ---
Author Organization Healthcare Address [address] [place] [address] Care Team Providers Care Scratcher Name Role Phone Leda Villeda Patrick DO Primary Care Provider [phone] Pcp, No Primary Care Provider Unavailabl e Encounter Details Date Type Department Care Team (Late st Contact Info) Description 10/18/2024 Results Follow-Up [facility] Pediatric Specialty [address], [address] [place] [address] Whitney Pereyra P, SIDE SAWYER [address] [place] [address] Social History Tobacco Use Types [...] Visit [facility] [address] [place] [address] Liset Castro MD [address] [place] [address] documented as of this encounter Visit Diagnoses Not on filedocumented in this encounter Additional Health Concerns Assessment Noted Time A Body Mass Index follow-up plan has been documented for the patient 10/24/2023 6:00 PM EDT documented as of this encounter Care Teams Scratcher Relationship Specialty Start Date End Date Leda Villeda DO [address] [place] [address] PCP - General 10/23/23 10/25/24 Pcp, [place] [address] PCP - General Family Medicine 10/26/24 documented as of this encounter
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
[2025-01-26 11:52] VITALS: BP 145/78; PULSE 95; RESP 18; TEMP 36.9; O2SAT 98
== END 2025-01-26 11:56 | disposition home or self-care (01) ==
PROVIDERS: Emergency Provider Emergency Medicine
DX: Z48.02 Encounter for removal of sutures (principal)
CPT/HCPCS: 99281

== ENCOUNTER 2025-05-24 16:28 | Emergency (ER) | payer MEDICAID, SELFPAY ==
[2025-05-24 16:34] VITALS: BP 157/100; PULSE 87; RESP 18; TEMP 37.2; O2SAT 98; BMI 29.2
[2025-05-24 16:42] VITALS: BP 152/99; PULSE 93; RESP 17; O2SAT 100
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
[2025-05-24] MEDS: ACETAMINOPHEN 500MG TAB 1000 MG PO (16:50)
[2025-05-24] MEDS: METHOCARBAMOL 500MG TABLET 1000 MG PO (16:51)
--- OUTSIDE RECORDS SUMMARY | 2025-05-24 16:59 | XMS_ITS | Clinical Summary ---
Author Organization [facility] Address [address] [place] [address] Care Team Providers Care Scrap Picker Name Role Phone Pcp, No Primary Care Provider Unavailabl e Allergies No known active allergies Medications No known medications Active Problems Problem Noted Date Diagnosed Date Family history of Penobscot's disease Missing teeth, acquired 10/24/2023 Chronic tension-type headache, not intractable 0 10/24/2023 Chronic back pain 10/24/2023 Wears glasses 10/24/2023 Astigmatism 10/24/2023 Family History Medical History Relation Name Comments Penobscot's disease Father Relation Name Status Comments Father [...] Care Team (Late st Contact Info) Description 06/15/2025 1:30 PM EST Office Visit [facility] [address] [place] [address] Whitney Pereyra, LOAD PLANNER [address] [place] [address] 07/05/2025 2:00 PM EST Office Visit [facility] [address] [place] [address] Liset Castro MD [address] [place] [id number] Health Maintenance Due Date Last Done Comments [facility]-HIV Screening 1990 [facility]-Hepatitis C Screening 1990 [facility]-Infant/Child/Adol SDOH Screenings 1990 [facility]-Varicella Vaccines (1 of 2 - 13+ 2-dose series) 2003 [facility]- SDOH Screenings 2008 [facility]-Adult SDOH Screenings 2008 [facility]-Pneumococcal Vaccine: Pediatrics (0 to 5 Years) and At-Risk Patients (6 to 49 Years) (1 of 2 - PCV) 2009 HPV Vaccines (1 - 3-dose SCDM series) 2017 [facility]-Depression Screening 10/22/2024 10/23/2023 [id number] Vaccine ( season) 2025 [facility]-Influenza Vaccine (#1) 2025 [facility]-DTaP,Tdap,and Td Vaccines (3 - Td or Tdap) 01/14/2035 01/14/2025, 01/28/2003 [facility]-Zoster Vaccines (1 of 2) 2040 [facility]-Hepatitis [...] on patient's age to complete this topic Care Teams Scrap Picker Relationship Specialty Start Date End Date Pcp, No [address] [place] [address] PCP - General Family Medicine 10/26/24
--- OUTSIDE RECORDS SUMMARY | 2025-05-24 16:59 | XMS_ITS | Clinical Summary ---
Author Organization 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 -Form completed during visit. Astigmatism 10/24/2023 Chronic back pain 10/24/2023 Chronic tension-type headache, not intractable 0 10/24/2023 Family history of Saunders's disease 4 Encounters Date Type Department Care Team Description 02/23/2025 2:00 PM EDT Office Visit [facility] [address] [place] [address] Chris Mckeon APRN Jojo disease (HCC) (Primary Dx) from Last 3 Months Immunizations Immunization Administration Dates Next Due Hepatitis A, Adult 07/17/2021 Hepatitis B, Ped/Adol 09/09/2003,02/28/2003,01/03 MMR 03/19/1996 Td (Adult), Absorbed 01/28/2003 Tdap 01/14/2025 Family History Medical History Relation Name Comments huntingtons disease Father huntingtons disease Relation Name Status Comments Father huntingtons disease Social History Tobacco Use Types Packs/Day Years Used Date Smoking Tobacco: Every Day Cigarettes 2 17.8 Started: 2007 Passive Smoke Exposure: Past Smokeless Tobacco: Never Tobacco Cessation:Ready to Q uit: Not Asked; Counseling Given: Not Answered Comments:Everton muniz PHQ-2 Answer Date Recorded PHQ-2 Total Score 0 12/28/2024 Sexually Active Control Partners Comments Not Currently Sex and Gender Information Value Date Recorded Sex Assigned at Not on file Legal Sex Male 4:06 PM EST Gender Identity Not on file Sexual Orientation Not on file Last Filed Vital Signs Vital Sign Reading Time Taken Comments Blood Pressure 108/64 02/23/2025 1:51 PM EDT Pulse - - Temperature 36.8 C (98.2 F) 02/23/2025 1:51 PM EDT Respiratory Rate - - Oxygen Saturation - - Inhaled Oxygen Concentration - - Weight 59.9 kg (132 lb) 02/23/2025 1:51 PM EDT Height 160 cm (5' 3 ) 02/23/2025 1:51 PM EDT Body Mass Index 23.38 02/23/2025 1:51 PM EDT Plan of Treatment Health Maintenance Due Date Last Done Comments Pneumococcal Vaccine 0-49 (1 of 2 - PCV) 2009 COVID-19 Vaccine ( - 2024-2 6 season) 2025 Influenza Vaccine (#1) 2025 Annual Wellness Exam 12/28/2025 12/28/2024 DTaP/TDaP/Td (3 - Td or Tdap) 01/14/2035, 01/28/2003 Hepatitis B Vaccine Completed 09/09/2003, 02/28/2003, 01/28/2003 Meningococcal B Vaccine Aged Out No l onger eligible based on patient's age to complete this topic Goals Goal Patient Goal Type Associated Problems Recent Progress Patient-Stated? Author Maintain a healthy diet, exercise regularly and maintain an ideal body weight General No Zara Griffin CCMA Stay Tobacco Free Lifestyle No Zara Griffin CCMA Care Teams Channel Supervisor Relationship Specialty Start Date End Date Darleen Trujillo MD [address] [place] [address] PCP - General Family Medicine 04/16/23
[2025-05-24 17:00] VITALS: BP 143/98; PULSE 91; RESP 18; O2SAT 98
[2025-05-24 17:07] LABS: Hematocrit 46.6 % (42.0-52.0); Hemoglobin 15.4 g/dL (14.1-18.0); Immature Granulocytes % 0.2 %; Mean Corpuscular HGB Conc 33.0 g/dL (31.8-35.4); Mean Corpuscular Hemoglobin 30.9 pg (27.0-31.2); Mean Corpuscular Volume 93.4 fl (80-94); Nucleated Red Blood Cells % 0 %; Platelet Count 325 K/mm3 (142-424); Red Blood Count 4.99 M/mm3 (4.60-6.20); Red Cell Distribution Width-SD 44.0 fL; White Blood Count 5.6 K/mm3 (4.8-10.8)
[2025-05-24 17:16] LABS: Alanine Aminotransferase 25 U/L (12-78); Albumin Level 4.2 g/dl (3.5-5.0); Albumin/Globulin Ratio 1.6 (1.1-1.8); Alkaline Phosphatase 125 U/L (38-126); Anion Gap 13.2 mEq/L (5-15); Aspartate Amino Transferase 23 U/L (17-59); Bilirubin,Total 0.6 mg/dl (0.2-1.3); Blood Urea Nitrogen 5 mg/dl (9-20); Calcium 9.2 mg/dl (8.4-10.2); Carbon Dioxide 27 mmol/L (22.0-30.0); Chloride 103 mmol/L (98-107); Creatinine Clearance Estimated 134 mL/min (50-200); Creatinine,Serum 0.80 mg/dl (0.66-1.25); Estimated Glomerular Filt Rate 111 ml/min (>60); GFR (African American) 134 ML/MIN (>60); Globulin 2.7 g/dL (1.3-3.2); Glucose 119 mg/dl (74-100); Potassium 4.2 mmoL/L (3.5-5.1); Sodium 139 mmol/L (136-145); Total Protein,Serum 6.9 g/dl (6.3-8.2)
[2025-05-24 17:18] LABS: Activated Partial Thrombo Time 24.5 seconds (22.8-30.6); INR 0.95 (0.9-1.1); Prothrombin Time 10.6 seconds (10.1-12.5)
[2025-05-24 18:27] VITALS: BP 137/91; PULSE 88; RESP 16; TEMP 36.6; O2SAT 97
== END 2025-05-24 18:33 | disposition home or self-care (01) ==
PROVIDERS: Emergency Provider Emergency Medicine; PCP Family Medicine
DX: M54.2 Cervicalgia (principal); M25.561 Pain in right knee; M25.562 Pain in left knee; M54.6 Pain in thoracic spine; F17.210 Nicotine dependence, cigarettes, uncomplicated; V49.40XA Driver injured in collision with unspecified motor vehicles in traffic accident, initial encounter
CPT/HCPCS: 70450; 71275; 72125; 72128; 72131; 73562; 74174; 80053; 85025; 85610; 85730; 99285